=== PATIENT | female | born 1955 | race Caucasian/White ===

== ENCOUNTER 2016-05-05 06:16 | Inpatient (IN) | payer MEDICARE ==
[~2016-05-05] VITALS: Ht 162.6 cm; Wt 71.7 kg
--- NOTE | ~2016-05-05 | WRIGHTHP ---
[place], [place] PATIENT HISTORY AND PHYSICAL EXAM NAME: [facility] #: [id number] UNIT #: [id number] ROOM: 407 DOCTOR: GUY PADILLA MD BIRTHDATE: [birth year] DOS: 05/05/2016 HISTORY OF PRESENT ILLNESS: The patient presented to the Emergency Department with complaints of elevated blood pressures, precordial sharp stabbing chest pains lasting about an hour, and she says she was quite anxious. No nausea, no diaphoresis, no other GI or urinary symptoms. The patient was admitted to a monitored bed and following admission, she was seen by Cardiology who recommended a cardiac stress test. The patient says she already had her last cardiac stress test in November and she refused another stress test and would like to go home today. The patient is feeling much better and her blood pressure has improved, and she is not as anxious anymore. There are no complaints of any chest pain, no shortness of breath, no dizziness or fainting episodes. No other GI or urinary symptoms anymore, and she is feeling well. SYSTEMS REVIEW: LUNGS: No increasing shortness of breath or wheezing. GASTROINTESTINAL: No nausea, vomiting, diarrhea, or constipation. CARDIOVASCULAR SYSTEM: Complains of chest pains prior to coming to the hospital. SOCIAL HISTORY: The patient lives by herself. She has history of smoking cigarettes. Denies any alcohol or drug abuse. The patient still smokes few cigarettes a day. FAMILY HISTORY: Noncontributory. HOME MEDICATIONS: Imdur, memantine, Dulera breathing treatments, DuoNeb, levothyroxine, Zyprexa, Mirapex, hydrochlorothiazide, fluoxetine, Protonix, aspirin, hydroxyzine, pregabalin, which is Lyrica, hydrocodone. PHYSICAL EXAMINATION: VITAL SIGNS: Blood pressure 127/69, heart rate 67 beats per minute, breathing 20 times per minute, temperature 98 degrees Fahrenheit. GENERAL APPEARANCE: The patient is alert and oriented x 3, in no visible distress. HEENT AND NECK: Extraocular movements are intact. Sclerae are anicteric. Oral mucosa is moist and clean. No obvious facial weakness. Neck is supple without any lymphadenopathy. No thyromegaly. No JVD. No carotid arterial bruits. LUNGS: Clear to auscultation. No wheezing. No rhonchi. CARDIOVASCULAR SYSTEM: Heart rate is regular in rate and rhythm. S1 and S2 normally audible. No significant murmur or any other abnormal cardiac sounds. ABDOMEN: Soft, nontender. No obvious organomegaly. Bowel sounds are present. No obvious herniation. EXTREMITIES: Without significant cyanosis or edema. Warm to touch. CENTRAL NERVOUS SYSTEM: Alert and oriented x 3. Cranial nerves II-XII are intact. Speech is normal. The patient is able to move all extremities. Normal muscle strength. Deep tendon reflexes are equal on both sides. Plantars were downgoing. LABORATORY DATA: First set of cardiac enzyme was negative. Second set was [place], [place] PATIENT HISTORY AND PHYSICAL EXAM [facility] [id number] UNIT #: [id number] ROOM: [facility] DOCTOR: GUY PADILLA MD BIRTHDATE: [birth year] refused by the patient, and finally sent. BUN and creatinine 22 and 1.2. Hemoglobin 11.7. IMPRESSION: The patient with chest pains with negative first set of cardiac enzymes, having refused second set, but she did allow one more enzyme to be sent out. That cardiac enzyme was negative and she is refusing cardiac stress testing and is asymptomatic. The patient will be discharged to home today and seen in my office by me in 3 days. I will continue all of her home medications as they exist. Case discussed with the patient and nursing staff and Dr. Yoan Blanca, the mule driver today. GUY PADILLA MD CM:HISPHYS:PATIENT HISTORY AND PHYSICAL EXAMINATION 45 13 GUY PADILLA MD 05/05/161911 interface
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
[~2016-05-05 06:16] MED LIST: ADDERALL XR10 MG PO; ALBUTEROL2.5 MG/0.5 INH; ARTIFICIAL TEAR15 M1 OU; ATARAX25 MG; ATARAX25 MG PO; AUGMENTIN 875 M1 TAB PO; AZELASTINE137 MCG/A1 NS; Amitriptyline H10 MG PO; BACLOFEN10 MG PO; CALCIUM WITH D PO; CENTRUM SILVER1 EACH PO; CENTRUM SILVER1 TA2 PO; CIPRO500 MG PO; CLARITIN10 MG PO; CLINDAMYCIN HC300 MG PO; CLONAZEPAM1 M1 PO; CLONAZEPAM1 MG PO; COMBIVENT1 ARO; CRESTOR20 MG; CRESTOR20 MG PO; DIFLUCAN150 MG PO; DITROPAN XL10 MG PO; DOXYCYCLINE100 M3 PO; DULCOLAX10 MG R; ECOTRIN325 MG PO; EXELON9.5 MG/24 TD; FISH OIL 1,2001 EACH PO; FISH OIL PO; FLEXERIL10 MG PO; FLOXETINE PO; FLUOXETINE HCL20 MG PO; FLUOXETINE40 MG PO; FOLIC ACID0.8 MG PO; GABAPENTIN TAB600 MG PO; GABAPENTIN100 M1 PO; GABAPENTIN100 MG PO; HYDROCODONE BIT1 T11 PO; HYDROXYZINE HCL25 M1 PO; HYDROXYZINE PAM25 M1 PO; IMDUR; IMDUR SA30 MG PO; KLONOPIN1 MG PO; LASIX10 MG/M1; LASIX20 MG PO; LIPITOR40 MG PO; LISINOPRIL-HYDR1 TA1 PO; LISINOPRIL-HYDR1 TA3 PO; LISINOPRIL20 MG PO; LISINOPRIL5 MG PO; LYRICA25 M1 PO; Lovenox40 MG/0.4 SC; MACROBID100 M1 PO; MAGNESIUM; MIRAPEX PO; MIRAPEX0.5 MG PO; MIRAPEX1 MG PO; MOM30 M1 PO; MOTRIN600 MG PO; MOTRIN800 MG PO; MUCINEX600 MG PO; NAMENDA-28 PO; NEURONTIN600 MG PO; NEXIUM40 MG PO; NILSTAT,MY500000 UN/ PO; NITROTAB0.4 MG SL; NORCO 325 MG-51 TAB PO; NORCO 7.5-3251 EACH PO; NORFLEX100 MG PO; NORVASC2.5 MG PO; NUVIGIL250 MG PO; NUVIGIL50 MG PO; OMEPRAZOLE20 MG PO; OPANA ER10 MG; PHENERGAN25 M1; POTASSIUM PO; PROAIR HFA0.09 MG/AC INH; PROAIR HFA8.5 GM INH; PROTONIX40 MG PO; PROZAC40 M1 PO; PROZAC40 MG PO; PYRIDIUM100 MG PO; PYRIDIUM200 MG PO; Phenergan25 MG PO; ROBITUSSIN DM120 ML PO; SOLU-MEDROL40 MG IJ; SOLU-MEDROL40 MG IV; SPIRIVA18 MCG IH; SPIRIVA18 MCG PO; SYMBICORT1 AE1 INH; SYNTHROID PO; Synthroid,Levo50 MCG PO; TYLENOL650 M1 PO; ULTRAM50 MG PO; VANCOMYCIN HYD IV; VESICARE10 MG PO; VICODIN 500 MG-1 TAB PO; VISTARIL25 MG PO; VITAMIN B12 PO; VITAMIN B121000 MC1 PO; VITAMIN B122000 MCG PO; VITAMIN D32000 UNI1 PO; VITAMIN D50000 I1 PO; ZITHROMAX Z PA250 MG PO; ZOFRAN ODT4 MG SL; ZOFRAN4 MG PO; [UNRECOGNIZED DRUG - MIXTURE] OP
[2016-05-05 06:21] VITALS: BP 174/97
[2016-05-05 06:58] LABS: BASO % 0.3 % (0.0-1.0); EOS % 0.4 % (1.0-4.0); HEMATOCRIT 36.2 % (37.0-47.0); HEMOGLOBIN 11.7 g/dl (12.0-16.0); LYMPH # 2.2 10*3/uL (1.3-4.4); LYMPH % 27.4 % (27.0-41.0); MEAN CELL VOLUME 92.3 fl (81.0-99.0); MEAN CORPUSCULAR HGB 29.8 pg (27.0-31.0); MEAN CORPUSCULAR HGB CONC 32.3 g/dl (33.0-37.0); MEAN PLATELET VOLUME 9.7 fl (9.6-12.3); MONO # 0.6 10*3/uL (0.1-1.0); MONO % 7.6 % (3.0-9.0); NEUT # 5.1 10*3/uL (2.3-7.9); NEUT % 63.8 % (47.0-73.0); PLATELET COUNT AUTOMATED 174 10*3/uL (130-400); RED BLOOD COUNT 3.92 10*6/uL (4.10-5.10); WHITE BLOOD COUNT 7.9 10*3/uL (4.8-10.8)
[2016-05-05 07:07] LABS: INTERNATIONAL NORM RATIO 0.9 (2.0-3.5); PROTHROMBIN TIME 9.9 SECONDS (9.0-12.4)
[2016-05-05 07:22] LABS: ALBUMIN 3.1 gm/dl (3.1-4.5); ALKALINE PHOSPHATASE 66 U/L (45-117); BILIRUBIN, DIRECT < 0.1 mg/dL (0.0-0.2); BILIRUBIN, TOTAL 0.3 mg/dl (0.2-1.0); BUN 22 mg/dl (7-24); CARBON DIOXIDE 26 mmol/L (21-32); CHLORIDE 107 mmol/L (98-107); EST GLOM FILT AFRICAN AMERICAN 52 ml/min; GLUCOSE 78 mg/dL (65-99); MAGNESIUM 2.2 mg/dL (1.5-2.1); POTASSIUM 3.5 mmol/L (3.5-5.1); SGOT/AST 11 IU/L (3-35); SGPT/ALT 16 U/L (12-78); SODIUM 142 mmol/L (136-145); TOTAL PROTEIN 6.3 gm/dL (6.4-8.2)
[2016-05-05 07:23] LABS: TROPONIN I < 0.015 ng/ml (<0.5)
[2016-05-05 07:43] VITALS: BP 182/82
[2016-05-05 09:22] VITALS: BP 170/88
[2016-05-05] MEDS ORDERED: HYDROCHLOROTH12.5 M3 PO (09:41)
[2016-05-05] MEDS ORDERED: OLANZAPINE5 MG PO (09:46)
[2016-05-05] MEDS ORDERED: Fluoxetine20 MG/5 ML PO (09:51)
[2016-05-05] MEDS ORDERED: DELTASONE1 MG PO (09:53)
[2016-05-05 12:00] VITALS: BP 160/90
[2016-05-05 16:00] VITALS: BP 127/69
[2016-06-12] MEDS ORDERED: SEPTRA DS 800 M1 TAB PO (17:10)
[2016-06-13] MEDS ORDERED: PROZAC20 MG PO (17:06)
[2016-06-13] MEDS ORDERED: CRESTOR20 M1 PO (17:09)
[2016-06-16] MEDS ORDERED: CLEOCIN HCL300 MG PO (16:18)
[2016-06-16] MEDS ORDERED: MEDROL DOSEPAK4 MG PO (16:27)
== END 2016-05-05 19:15 | disposition home or self-care (01) | DRG 206 ==
LOC: ED 06:16 → EDHOLD 07:56 → 4E 08:15
PROVIDERS: Emergency Medicine
DX: M94.0 Chondrocostal junction syndrome [Tietze] (principal); Z99.81 Dependence on supplemental oxygen; I25.10 Atherosclerotic heart disease of native coronary artery without angina pectoris; I10 Essential (primary) hypertension; J44.9 Chronic obstructive pulmonary disease, unspecified; F41.9 Anxiety disorder, unspecified; G89.4 Chronic pain syndrome; F32.9 Major depressive disorder, single episode, unspecified; E03.9 Hypothyroidism, unspecified; F17.210 Nicotine dependence, cigarettes, uncomplicated; Z79.899 Other long term (current) drug therapy; Z79.82 Long term (current) use of aspirin; Z95.1 Presence of aortocoronary bypass graft; Z82.49 Family history of ischemic heart disease and other diseases of the circulatory system; Z88.1 Allergy status to other antibiotic agents; Z88.8 Allergy status to other drugs, medicaments and biological substances

== ENCOUNTER → 2016-07-25 | Outpatient (CLI) | payer OTHER ==
[~2016-07-25] MED LIST changes: +CLEOCIN HCL300 MG PO; +CRESTOR20 M1 PO; +DELTASONE1 MG PO; +Fluoxetine20 MG/5 ML PO; +HYDROCHLOROTH12.5 M3 PO; +MEDROL DOSEPAK4 MG PO; +OLANZAPINE5 MG PO; +PROZAC20 MG PO; +SEPTRA DS 800 M1 TAB PO
== END | disposition home or self-care (01) ==
LOC: US 19:00
DX: R60.0 Localized edema (principal)

== ENCOUNTER 2016-09-24 07:46 | Emergency (ER) | payer OTHER ==
[~2016-09-24] VITALS: Ht 162.5 cm; Wt 60.3 kg
[2016-09-24 08:19] LABS: BASO % 0.1 % (0.0-1.0); EOS % 0.2 % (1.0-4.0); HEMOGLOBIN 11.8 g/dl (12.0-16.0); LYMPH # 1.2 10*3/uL (1.3-4.4); LYMPH % 12.8 % (27.0-41.0); MEAN CELL VOLUME 90.7 fl (81.0-99.0); MEAN CORPUSCULAR HGB 28.9 pg (27.0-31.0); MEAN CORPUSCULAR HGB CONC 31.9 g/dl (33.0-37.0); MEAN PLATELET VOLUME 10.2 fl (9.6-12.3); MONO # 0.6 10*3/uL (0.1-1.0); MONO % 6.6 % (3.0-9.0); NEUT # 7.3 10*3/uL (2.3-7.9); NEUT % 80.1 % (47.0-73.0); PLATELET COUNT AUTOMATED 159 10*3/uL (130-400); RED BLOOD COUNT 4.08 10*6/uL (4.10-5.10); RED CELL DISTRI WIDTH 13.6 % (0-14.5); WHITE BLOOD COUNT 9.1 10*3/uL (4.8-10.8)
[2016-09-24 08:30] VITALS: BP 153/78
[2016-09-24 08:35] LABS: BUN 23 mg/dl (7-24); CARBON DIOXIDE 28 mmol/L (21-32); CHLORIDE 101 mmol/L (98-107); EST GLOM FILT AFRICAN AMERICAN 47 ml/min; GLUCOSE 97 mg/dL (65-99); POTASSIUM 3.9 mmol/L (3.5-5.1); SODIUM 138 mmol/L (136-145); TROPONIN I < 0.015 ng/ml (<0.045)
[2016-09-24] MEDS ORDERED: DELTASONE20 M1 PO (10:47)
== END 2016-09-24 11:01 | disposition home or self-care (01) ==
LOC: ED 07:46
PROVIDERS: Emergency Medicine
DX: S20.219A Contusion of unspecified front wall of thorax, initial encounter (principal); J44.1 Chronic obstructive pulmonary disease with (acute) exacerbation; F17.200 Nicotine dependence, unspecified, uncomplicated; Z95.1 Presence of aortocoronary bypass graft; I25.10 Atherosclerotic heart disease of native coronary artery without angina pectoris; N18.9 Chronic kidney disease, unspecified; Z99.81 Dependence on supplemental oxygen; Z79.82 Long term (current) use of aspirin; Z88.1 Allergy status to other antibiotic agents; Z88.6 Allergy status to analgesic agent; Z88.8 Allergy status to other drugs, medicaments and biological substances; Z91.018 Allergy to other foods; Z79.899 Other long term (current) drug therapy; W18.09XA Striking against other object with subsequent fall, initial encounter; Y93.89 Activity, other specified; Y92.9 Unspecified place or not applicable; Y99.9 Unspecified external cause status

== ENCOUNTER → 2016-09-27 | Outpatient (CLI) | payer OTHER ==
[~2016-09-27] MED LIST changes: +DELTASONE20 M1 PO
== END | disposition home or self-care (01) ==
LOC: RAD 18:12
DX: J98.4 Other disorders of lung (principal); Z87.81 Personal history of (healed) traumatic fracture

== ENCOUNTER → 2016-11-06 | Outpatient (CLI) | payer OTHER | END | disposition home or self-care (01) | LOC: LAB 16:24 | DX: Z11.2 Encounter for screening for other bacterial diseases (principal) ==

== ENCOUNTER 2016-11-19 16:16 | Emergency (ER) | payer OTHER ==
[~2016-11-19] VITALS: Wt 63.5 kg
[2016-11-19 16:18] VITALS: BP 166/80
[2016-11-19 16:18] LABS: BASO % 0.2 % (0.0-1.0); EOS % 0.2 % (1.0-4.0); HEMATOCRIT 38.6 % (37.0-47.0); HEMOGLOBIN 12.3 g/dl (12.0-16.0); LYMPH # 1.4 10*3/uL (1.3-4.4); LYMPH % 21.2 % (27.0-41.0); MEAN CORPUSCULAR HGB 28.7 pg (27.0-31.0); MEAN CORPUSCULAR HGB CONC 31.9 g/dl (33.0-37.0); MEAN PLATELET VOLUME 10.3 fl (9.6-12.3); MONO # 0.4 10*3/uL (0.1-1.0); MONO % 6.2 % (3.0-9.0); NEUT # 4.7 10*3/uL (2.3-7.9); NEUT % 71.9 % (47.0-73.0); PLATELET COUNT AUTOMATED 198 10*3/uL (130-400); RED BLOOD COUNT 4.29 10*6/uL (4.10-5.10); RED CELL DISTRI WIDTH 13.9 % (0-14.5); WHITE BLOOD COUNT 6.5 10*3/uL (4.8-10.8)
[2016-11-19 16:32] LABS: PROTHROMBIN TIME 10.4 SECONDS (9.0-12.4)
[2016-11-19 16:36] LABS: ALBUMIN 3.3 gm/dl (3.1-4.5); BILIRUBIN, TOTAL 0.2 mg/dl (0.2-1.0); POTASSIUM 3.3 mmol/L (3.5-5.1); TOTAL PROTEIN 7.3 gm/dL (6.4-8.2)
== END 2016-11-19 20:06 | disposition home or self-care (01) ==
LOC: EDSTATUS 16:16 → ED 16:17
PROVIDERS: Specialist
DX: S41.111A Laceration without foreign body of right upper arm, initial encounter (principal); J44.9 Chronic obstructive pulmonary disease, unspecified; I25.10 Atherosclerotic heart disease of native coronary artery without angina pectoris; F17.200 Nicotine dependence, unspecified, uncomplicated; Z88.1 Allergy status to other antibiotic agents; Z88.6 Allergy status to analgesic agent; Z88.8 Allergy status to other drugs, medicaments and biological substances; Z79.82 Long term (current) use of aspirin; Z79.899 Other long term (current) drug therapy; W18.39XA Other fall on same level, initial encounter; Y93.89 Activity, other specified; Y92.89 Other specified places as the place of occurrence of the external cause; Y99.8 Other external cause status

== ENCOUNTER → 2017-01-21 | Outpatient (CLI) | payer OTHER | END | disposition home or self-care (01) | LOC: MRI 11:00 | DX: M47.897 Other spondylosis, lumbosacral region (principal); M48.07 Spinal stenosis, lumbosacral region; I67.82 Cerebral ischemia; I10 Essential (primary) hypertension ==

== ENCOUNTER 2017-02-04 05:44 | Emergency (ER) | payer OTHER ==
[~2017-02-04] VITALS: Ht 160 cm; Wt 63.5 kg
--- NOTE | ~2017-02-04 | EKG ---
[place], [place] ELECTROCARDIOGRAM REPORT [facility] [id number] UNIT #: [id number] ROOM: DOCTOR: ESTEFANY MIKE MD,PATRICA BIRTHDATE: [birth year] DOS: 02/04/2017 Electrocardiogram done 02/04/2017 at 6:39 a.m. Normal sinus rhythm were noted for this patient. Mild prolongation of the SD interval is noted consistent with first-degree heart block. PATRICA ALLISON MD CM:EKGRPT:ELECTROCARDIOGRAM REPORT 1220 1235 PATRICA MIKE MD
[2017-02-04 06:30] LABS: BILIRUBIN NEGATIVE (NEGATIVE); BLOOD TRACE-INTACT (NEGATIVE); CLARITY CLEAR (CLEAR); COLOR YELLOW (YELLOW); GLUCOSE NEGATIVE (NEGATIVE); KETONE NEGATIVE (NEGATIVE); LEUKO ESTERASE NEGATIVE (NEGATIVE); NITRITE NEGATIVE (NEGATIVE); PH 5.5 (5.0-9.0); UROBILINOGEN 0.2 E.U./dl (0.2-1.0)
[2017-02-04 06:37] LABS: RBC 0-2 rbc/hpf (0-2); WBC 0-2 wbc/hpf (0-5)
[2017-02-04 06:44] LABS: EOS % 0.8 % (1.0-4.0); HEMATOCRIT 36.2 % (37.0-47.0); HEMOGLOBIN 11.3 g/dl (12.0-16.0); LYMPH # 1.1 10*3/uL (1.3-4.4); LYMPH % 21.9 % (27.0-41.0); MEAN CELL VOLUME 91.2 fl (81.0-99.0); MEAN CORPUSCULAR HGB 28.5 pg (27.0-31.0); MEAN CORPUSCULAR HGB CONC 31.2 g/dl (33.0-37.0); MEAN PLATELET VOLUME 9.9 fl (9.6-12.3); MONO # 0.5 10*3/uL (0.1-1.0); MONO % 9.3 % (3.0-9.0); NEUT # 3.3 10*3/uL (2.3-7.9); NEUT % 67.8 % (47.0-73.0); PLATELET COUNT AUTOMATED 123 10*3/uL (130-400); RED BLOOD COUNT 3.97 10*6/uL (4.10-5.10); RED CELL DISTRI WIDTH 14.6 % (0-14.5); WHITE BLOOD COUNT 4.9 10*3/uL (4.8-10.8)
[2017-02-04 07:01] LABS: ALBUMIN 3.2 gm/dl (3.1-4.5); ALKALINE PHOSPHATASE 111 U/L (45-117); BUN 17 mg/dl (7-24); CHLORIDE 105 mmol/L (98-107); CREATININE 1.13 mg/dL (0.55-1.02); POTASSIUM 3.7 mmol/L (3.5-5.1); SGOT/AST 17 IU/L (3-35); SGPT/ALT 18 U/L (12-78); SODIUM 139 mmol/L (136-145); TOTAL PROTEIN 6.7 gm/dL (6.4-8.2); TROPONIN I < 0.015 ng/ml (<0.045)
[2017-02-04 07:29] VITALS: BP 148/60
[2017-02-04] MEDS ORDERED: LISINOPRIL5 MG PO (07:30)
== END 2017-02-04 08:24 | disposition home or self-care (01) ==
LOC: ED 05:44
PROVIDERS: Emergency Medicine Emergency Medical Services
DX: I12.9 Hypertensive chronic kidney disease with stage 1 through stage 4 chronic kidney disease, or unspecified chronic kidney disease (principal); N18.9 Chronic kidney disease, unspecified; J44.1 Chronic obstructive pulmonary disease with (acute) exacerbation; F32.9 Major depressive disorder, single episode, unspecified; F17.200 Nicotine dependence, unspecified, uncomplicated; Z88.8 Allergy status to other drugs, medicaments and biological substances; Z88.5 Allergy status to narcotic agent; Z79.82 Long term (current) use of aspirin; Z79.899 Other long term (current) drug therapy; Z95.1 Presence of aortocoronary bypass graft

== ENCOUNTER 2017-02-06 23:46 | Emergency (ER) | payer OTHER ==
[~2017-02-06] VITALS: Ht 170.1 cm; Wt 65.8 kg
[2017-02-07 00:14] LABS: ACT PARTIAL THROMBO TIME 24.2 SECONDS (20.8-31.5); INTERNATIONAL NORM RATIO 0.9 (2.0-3.5)
[2017-02-07 00:17] LABS: BASO % 0.2 % (0.0-1.0); EOS % 0.2 % (1.0-4.0); HEMATOCRIT 34.5 % (37.0-47.0); HEMOGLOBIN 10.9 g/dl (12.0-16.0); LYMPH # 1.2 10*3/uL (1.3-4.4); LYMPH % 19.9 % (27.0-41.0); MEAN CELL VOLUME 89.8 fl (81.0-99.0); MEAN CORPUSCULAR HGB 28.4 pg (27.0-31.0); MEAN CORPUSCULAR HGB CONC 31.6 g/dl (33.0-37.0); MEAN PLATELET VOLUME 10.5 fl (9.6-12.3); MONO # 0.4 10*3/uL (0.1-1.0); MONO % 6.7 % (3.0-9.0); NEUT # 4.3 10*3/uL (2.3-7.9); NEUT % 72.3 % (47.0-73.0); PLATELET COUNT AUTOMATED 148 10*3/uL (130-400); RED BLOOD COUNT 3.84 10*6/uL (4.10-5.10)
[2017-02-07 00:20] LABS: ALBUMIN 3.1 gm/dl (3.1-4.5); ALKALINE PHOSPHATASE 104 U/L (45-117); BUN 29 mg/dl (7-24); CHLORIDE 106 mmol/L (98-107); CREATININE 1.82 mg/dL (0.55-1.02); POTASSIUM 3.7 mmol/L (3.5-5.1); SGOT/AST 20 IU/L (3-35); SGPT/ALT 17 U/L (12-78); SODIUM 140 mmol/L (136-145); TOTAL PROTEIN 6.4 gm/dL (6.4-8.2)
[2017-02-07 00:22] LABS: TROPONIN I < 0.015 ng/ml (<0.045)
[2017-02-07 02:51] VITALS: BP 104/48
== END 2017-02-07 03:14 | disposition short-term general hospital (02) ==
LOC: ED 23:46
PROVIDERS: Emergency Medicine
DX: I20.0 Unstable angina (principal); I12.9 Hypertensive chronic kidney disease with stage 1 through stage 4 chronic kidney disease, or unspecified chronic kidney disease; N18.9 Chronic kidney disease, unspecified; R94.31 Abnormal electrocardiogram [ECG] [EKG]; I25.10 Atherosclerotic heart disease of native coronary artery without angina pectoris; J44.9 Chronic obstructive pulmonary disease, unspecified; Z88.1 Allergy status to other antibiotic agents; Z88.8 Allergy status to other drugs, medicaments and biological substances; Z88.6 Allergy status to analgesic agent; Z91.02 Food additives allergy status; Z79.4 Long term (current) use of insulin; Z79.899 Other long term (current) drug therapy

== ENCOUNTER → 2017-02-22 | Day surgery (SDC) | payer OTHER ==
[~2017-02-22] VITALS: Ht 157.4 cm; Wt 65.8 kg
--- NOTE | ~2017-02-22 | O ---
[place], [place] OPERATIVE NOTE [id number] UN[facility] #: [id number] ROOM: [facility] BIR[facility]: [birth year] DOS: PROCEDURES: 1. Esophagogastroduodenoscopy and biopsy. 2. Colonoscopy and polypectomy. INDICATIONS: GERD and change in bowel habits. An informed consent was obtained from the patient after indication of procedures, alternatives and potential complications were explained to her. PROCEDURE MEDICATIONS: Sedation was administered by Anesthesiology Department. Scope used for upper endoscopy was Olympus gastroscope, GIF-180, depth of insertion was to the descending duodenum and for the colonoscopy the scope used was Olympus diagnostic pediatric colonoscope, variable stiffness, GIF-180, depth of insertion was to the cecum, which was identified by the usual landmarks, appendiceal orifice, ileocecal valve and triangular fold, in addition to transillumination in the right lower quadrant. FINDINGS: After adequate sedation, the patient was placed in left lateral decubitus position. Upper endoscopy was performed first. The scope was introduced under direct visualization through the upper esophageal sphincter into the esophagus. Esophageal mucosa appeared normal. No ulcerations or stricture. The lower esophageal sphincter was identified at 36 cm from incisors. Stomach was then intubated. Gastric mucosa inspected. Severe gastritis was seen. No discrete ulcers or active bleeding. A FRANCIE test was performed from the gastric antrum and body. On retroflexed views in the fundus, a grade 1 sliding hiatal hernia was identified. Pylorus was intubated easily. The duodenal bulb showed patchy erythema consistent with duodenitis and the descending duodenum was within normal range. The scope was then withdrawn after the stomach was decompressed. We then proceeded with a colonoscopy. Rectal examination showed diminished sphincter tone and no external hemorrhoids. Scope was introduced into the rectum, then advanced to the cecum with no difficulty. The prep was adequate. An 8 mm polyp was identified in the descending colon. The polyp was removed with a cold mini snare and recovered. The remaining colon mucosa showed moderate left-sided diverticular disease and no other abnormalities. Retroflexed views of the rectum showed grade 1 internal hemorrhoids. The scope was then withdrawn after the rectum was decompressed. The patient tolerated the procedure well. IMPRESSION: 1. Small hiatal hernia. 2. Gastritis and duodenitis, CLOtest performed. 3. Diminutive descending colon polyp, removed. 4. Moderate left-sided diverticular disease. 5. Internal hemorrhoids. PLAN: We will review the FRANCIE test and histopathology reports and treat the patient accordingly. Office followup will be scheduled in 2-3 weeks. [place], [place] OPERATIVE NOTE NAME: TONI TOSCANO UNIT #: [id number] ROOM: DOCTOR: OTILIA HUYNH MD BIRTHDATE: [birth year] OTILIA HUYNH MD CM:OPRECORD:OPERATIVE NOTE 1012 1044 GUY HUYNH MD 02/22/17 1045 interface
[2017-02-22 09:04] VITALS: BP 148/67
[2017-02-22 10:10] VITALS: BP 119/59
[2017-02-22 10:25] VITALS: BP 106/38
[2017-02-22 10:40] VITALS: BP 93/34
[2017-02-22 10:48] VITALS: BP 145/75
== END | disposition home or self-care (01) ==
LOC: SDC 02-19 08:45
DX: D12.5 Benign neoplasm of sigmoid colon (principal); K29.90 Gastroduodenitis, unspecified, without bleeding; K44.9 Diaphragmatic hernia without obstruction or gangrene; K63.5 Polyp of colon; K57.30 Diverticulosis of large intestine without perforation or abscess without bleeding; K64.0 First degree hemorrhoids; K21.9 Gastro-esophageal reflux disease without esophagitis; I10 Essential (primary) hypertension; J44.9 Chronic obstructive pulmonary disease, unspecified; F32.9 Major depressive disorder, single episode, unspecified; F41.9 Anxiety disorder, unspecified; I25.10 Atherosclerotic heart disease of native coronary artery without angina pectoris; J43.9 Emphysema, unspecified; G89.29 Other chronic pain; F17.210 Nicotine dependence, cigarettes, uncomplicated; Z80.9 Family history of malignant neoplasm, unspecified; Z82.49 Family history of ischemic heart disease and other diseases of the circulatory system; Z88.8 Allergy status to other drugs, medicaments and biological substances

== ENCOUNTER 2017-03-29 13:54 | Inpatient (IN) | payer OTHER ==
[~2017-03-29] VITALS: Ht 162.5 cm; Wt 68.9 kg
--- NOTE | ~2017-03-29 | EKG ---
[place], [place] ELECTROCARDIOGRAM REPORT NAME: TONI TOSCANO UNIT #: [id number] ROOM: [facility] DOCTOR: JULIAN FLYNN,YAMEL BIRTHDATE: [birth year] DOS: 03/29/2017 TIME: 1523 hours. IMPRESSION: 1. Sinus rhythm. 2. Borderline left atrial enlargement. 3. Nonspecific ST-T changes, especially V1 and V2. YAMEL JORDAN MD CM:EKGRPT:ELECTROCARDIOGRAM REPORT 1023 1043 YAMEL JORDAN MD
--- NOTE | ~2017-03-29 | WRIGHTHP ---
[place], [place] PATIENT HISTORY AND PHYSICAL EXAM NAME: TONI TOSCANO [facility] #: [id number] UNIT #: [id number] ROOM: 415 DOCTOR: GUY PADILLA MD BIRTHDATE: [birth year] DOS: 03/29/2017 HISTORY OF PRESENT ILLNESS: The patient is a 61-year-old female with a past medical history of: 1. COPD. 2. Nicotine smoke dependence. 3. Chronic kidney disease stage 3B. 4. Benign essential hypertension. 5. Adult failure to thrive. 6. Mixed hyperlipidemia. 7. Major depression. 8. Coronary artery disease of [place] vessels with coronary artery bypass grafts in June 2008. 10. History of partial hysterectomy. The patient presented to [facility] Emergency Department with complaints of finding herself on the floor and waking up with some bruises and pain in the left ribs this time. The patient was recommended for admission and cardiac monitoring, which was performed for 24 hours and patient has not had any issues with loss of consciousness and no significant cardiac dysrhythmias. The patient already has an appointment to see a neurologist as an outpatient. No seizures have been observed. No chest pain. No increasing shortness of breath. No GI or urinary symptoms. REVIEW OF SYSTEMS: LUNGS: No increasing shortness of breath or wheezing. GASTROINTESTINAL: No nausea, vomiting, diarrhea or constipation. CARDIOVASCULAR: No chest pains or palpitations. FAMILY HISTORY: Noncontributory. MEDICATIONS: Sennosides, Imdur, fluoxetine, aspirin, levothyroxine, Protonix, Lipitor, Zyprexa, memantine, hydroxyzine, Dulera, pregabalin. ALLERGIES: CEPHALOSPORINS, QUINOLONES, OXYCODONE, ASPARTAME, HYDROMORPHONE, RIVASTIGMINE, AVELOX, LEXAPRO. PHYSICAL EXAMINATION: GENERAL: Alert and oriented x 3, in no visible distress. HEENT AND NECK: Extraocular movements are intact. Sclerae are anicteric. Oral mucosa is moist and clean. No obvious facial weakness. Neck is supple without any lymphadenopathy. No thyromegaly. No JVD. No carotid arterial bruits. LUNGS: Clear to auscultation. No wheezing. No rhonchi. CARDIOVASCULAR SYSTEM: Heart rate is regular in rate and rhythm. S1 and S2 normally audible. No significant murmur or any other abnormal cardiac sounds. ABDOMEN: Soft, nontender. No obvious organomegaly. Bowel sounds are present. No obvious herniation. EXTREMITIES: Without significant cyanosis or edema. Warm to touch. CENTRAL NERVOUS SYSTEM: Alert and oriented x 3. Cranial nerves II-XII are [place], [place] PATIENT HISTORY AND PHYSICAL EXAM [facility] [id number] UNIT #: [id number] ROOM: [facility] DOCTOR: GUY PADILLA MD BIRTHDATE: [birth year] intact. Speech is normal. The patient is able to move all extremities. Normal muscle strength. Deep tendon reflexes are equal on both sides. Plantars were downgoing. LABORATORY DATA: Hemoglobin of 10.5, otherwise normal CBC, platelets at 124,000, slightly reduced. Normal serum electrolytes, bilirubin, liver enzymes. Left rib x-ray is without fracture. IMPRESSION: 1. The patient with episodes of loss of consciousness from uncertain etiology. The patient already has an appointment to see a neurologist and we have no neurologist available on staff at [facility]. The patient had no episode of loss of consciousness during this admission and no significant cardiac dysrhythmias were observed on the equipment monitor phototypesetting. Since the patient is asymptomatic, she will be discharged to home to follow up with me on Saturday and I will try to get an earlier appointment to see a neurologist for further evaluation. 2. Centrilobular emphysema with continued nicotine smoke dependence. The patient being encouraged to stop smoking cigarettes and kept on bronchodilators. 3. Coronary artery disease of [place] vessels, without chest pains. 4. Benign essential hypertension, with controlled blood pressures. 5. Chronic kidney disease stage 3B. GUY PADILLA MD CM:HISPHYS:PATIENT HISTORY AND PHYSICAL EXAMINATION 29 37 GUY PADILLA MD 03/30/171937 interface
--- NOTE | ~2017-03-29 | CON ---
[place], [place] REPORT OF CONSULTATION NAME: TONI TOSCANO [facility] #: [id number] UNIT #: [id number] ROOM: 415 DOCTOR: YAMEL JORDAN MD BIRTHDATE: [birth year] DOS: 03/30/2017 REASON FOR CONSULTATION: Cardiac evaluation due to history of coronary artery disease and hypertension. HISTORY OF PRESENT ILLNESS: The patient is a 61-year-old patient with history of coronary artery disease, bypass surgery, hypertension, came with "history of recurrent falls for the past few years." The patient is rather vague in her description of symptoms and also changing from subject to subject. Apparently, she was seen by her parts technician a few weeks ago and was told that her heart was doing okay and they referred her to see a specialist for questionable Parkinson's disease. She denies any chest pain, shortness of breath or palpitations. Had complaints of recurrent falls and "loss of consciousness" and also some unusual movement of her extremities, but denies any PND or orthopnea. No edema. No nausea, vomiting, diarrhea. REVIEW OF SYSTEMS: Review of the 8 systems negative except as mentioned above. PAST MEDICAL HISTORY: 1. Hypertension, CAD. 2. Dyslipidemia. 3. Depression. 4. Anxiety. 5. Chronic obstructive pulmonary disease. 6. Home oxygen. PAST SURGICAL HISTORY: 1. History of bypass surgery. 2. History of hysterectomy. HOME MEDICATIONS: Reviewed. ALLERGIES: Reviewed including oxycodone, opioids, Exelon, cephalosporins. SOCIAL HISTORY: The patient does smoke. FAMILY HISTORY: Noncontributory. PHYSICAL EXAMINATION: VITAL SIGNS: Blood pressure 107/80, pulse 64, respirations 18, weight 68.9 kg. GENERAL: Alert, comfortable, in no acute distress. HEENT: Pupils are round and equal. No jaundice. NECK: Supple, no distended veins. No carotid bruit. CHEST: Symmetrical, nontender. LUNGS: Clear to auscultation bilaterally. HEART: Regular rhythm, no S3, grade 1/6 systolic murmur. ABDOMEN: Benign, nontender. Bowel sounds normal. EXTREMITIES: Showed no edema. Distal pulses are palpable. SKIN: Warm and dry. No cyanosis, no clubbing. NEUROLOGIC: The patient is alert, oriented. No focal neurologic deficits. [place], [place] REPORT OF CONSULTATION NAME: [facility] [id number] UNIT #: [id number] ROOM: 415 DOCTOR: JULIAN FLYNN,YAMEL BIRTHDATE: [birth year] RECTAL: Deferred. GENITOURINARY: Deferred. REVIEW OF THE DIAGNOSTIC TESTS: EKG shows sinus rhythm with no acute ischemic changes. Labs reviewed including hemoglobin 10.2, platelets 123. Rhythm strip shows sinus rhythm with occasional sinus bradycardia. IMPRESSION: 1. Recurrent falls, etiology unknown. She will need further evaluation with a stress test, especially Neurology. 2. Coronary artery disease, status post bypass in the past. 3. Hypertension, currently stable. 4. Anemia. 5. Sinus bradycardia, asymptomatic. 6. Peripheral vascular disease. 7. Home oxygen. 8. Tobacco smoking. RECOMMENDATIONS: 1. The patient is stable from a cardiac standpoint. 2. Continue her aspirin, Imdur, and statin. She was not on beta blockers due to her sinus bradycardia. 3. The patient is strongly counseled to quit smoking. 4. She would like to follow with [facility] in the future. 5. She can be discharged from the cardiac point and I would recommend to decrease aspirin to 81 mg daily. 6. She says she has all the cardiac testing done recently with her parts technician and her last test in 2012 reviewed. Thank you, Dr. Heard, for asking us to evaluate this patient and we will follow the case along with you. YAMEL JORDAN MD CM:CONSTR:REPORT OF CONSULTATION 1544 03/30/17 2208 interface
[2017-03-29 14:12] VITALS: BP 186/74
[2017-03-29 15:34] LABS: BASO % 0.2 % (0.0-1.0); EOS # 0.1 10*3/uL (0.0-0.4); HEMATOCRIT 34.2 % (37.0-47.0); HEMOGLOBIN 10.5 g/dl (12.0-16.0); LYMPH # 0.9 10*3/uL (1.3-4.4); LYMPH % 15.1 % (27.0-41.0); MEAN CELL VOLUME 92.4 fl (81.0-99.0); MEAN CORPUSCULAR HGB 28.4 pg (27.0-31.0); MEAN CORPUSCULAR HGB CONC 30.7 g/dl (33.0-37.0); MEAN PLATELET VOLUME 10.6 fl (9.6-12.3); MONO # 0.6 10*3/uL (0.1-1.0); MONO % 9.1 % (3.0-9.0); NEUT # 4.6 10*3/uL (2.3-7.9); NEUT % 74.4 % (47.0-73.0); PLATELET COUNT AUTOMATED 124 10*3/uL (130-400); WHITE BLOOD COUNT 6.2 10*3/uL (4.8-10.8)
[2017-03-29 15:52] LABS: ALBUMIN 3.4 gm/dl (3.1-4.5); ALKALINE PHOSPHATASE 100 U/L (45-117); BUN 15 mg/dl (7-24); CHLORIDE 106 mmol/L (98-107); CREATININE 1.02 mg/dL (0.55-1.02); POTASSIUM 3.8 mmol/L (3.5-5.1); SGOT/AST 22 IU/L (3-35); SGPT/ALT 23 U/L (12-78); SODIUM 141 mmol/L (136-145); TOTAL PROTEIN 6.7 gm/dL (6.4-8.2)
[2017-03-29 16:55] VITALS: BP 178/80
[2017-03-29 18:09] VITALS: BP 157/69
[2017-03-29] MEDS ORDERED: SENNA8.6 MG PO (19:54)
[2017-03-29 20:00] VITALS: BP 144/71; BP 144/78
[2017-03-30] VITALS: BP 170/71
[2017-03-30 06:07] LABS: EOS # 0.1 10*3/uL (0.0-0.4); EOS % 1.5 % (1.0-4.0); HEMATOCRIT 33.6 % (37.0-47.0); HEMOGLOBIN 10.2 g/dl (12.0-16.0); LYMPH # 1.1 10*3/uL (1.3-4.4); LYMPH % 24.8 % (27.0-41.0); MEAN CELL VOLUME 93.3 fl (81.0-99.0); MEAN CORPUSCULAR HGB 28.3 pg (27.0-31.0); MEAN CORPUSCULAR HGB CONC 30.4 g/dl (33.0-37.0); MEAN PLATELET VOLUME 11.4 fl (9.6-12.3); MONO # 0.5 10*3/uL (0.1-1.0); MONO % 10.7 % (3.0-9.0); NEUT # 2.9 10*3/uL (2.3-7.9); NEUT % 62.8 % (47.0-73.0); PLATELET COUNT AUTOMATED 123 10*3/uL (130-400); WHITE BLOOD COUNT 4.6 10*3/uL (4.8-10.8)
[2017-03-30 06:08] LABS: BUN 13 mg/dl (7-24); CHLORIDE 106 mmol/L (98-107); CREATININE 1.06 mg/dL (0.55-1.02); POTASSIUM 3.7 mmol/L (3.5-5.1); SODIUM 140 mmol/L (136-145)
[2017-03-30 08:00] VITALS: BP 138/65
[2017-03-30 12:00] VITALS: BP 107/80
[2017-03-30 16:00] VITALS: BP 128/57
== END 2017-03-30 18:43 | disposition home or self-care (01) | DRG 605 ==
LOC: ED 13:54 → EDHOLD 18:46 → 4E 18:55
PROVIDERS: Emergency Medicine; Internal Medicine
DX: S30.0XXA Contusion of lower back and pelvis, initial encounter (principal); Z99.81 Dependence on supplemental oxygen; N18.3 Chronic kidney disease, stage 3 (moderate); J43.2 Centrilobular emphysema; E78.2 Mixed hyperlipidemia; D64.9 Anemia, unspecified; R55 Syncope and collapse; I12.9 Hypertensive chronic kidney disease with stage 1 through stage 4 chronic kidney disease, or unspecified chronic kidney disease; F32.9 Major depressive disorder, single episode, unspecified; I25.10 Atherosclerotic heart disease of native coronary artery without angina pectoris; F17.210 Nicotine dependence, cigarettes, uncomplicated; G89.29 Other chronic pain; K25.7 Chronic gastric ulcer without hemorrhage or perforation; W19.XXXA Unspecified fall, initial encounter; F41.9 Anxiety disorder, unspecified; R00.1 Bradycardia, unspecified; Z95.1 Presence of aortocoronary bypass graft; Z90.710 Acquired absence of both cervix and uterus; Z79.82 Long term (current) use of aspirin; Z79.899 Other long term (current) drug therapy; Z88.1 Allergy status to other antibiotic agents; Z88.8 Allergy status to other drugs, medicaments and biological substances; Z87.01 Personal history of pneumonia (recurrent); Z80.1 Family history of malignant neoplasm of trachea, bronchus and lung; Z84.89 Family history of other specified conditions; Z82.49 Family history of ischemic heart disease and other diseases of the circulatory system; Y93.89 Activity, other specified; Y92.89 Other specified places as the place of occurrence of the external cause; Y99.8 Other external cause status; Z71.6 Tobacco abuse counseling; R29.6 Repeated falls

== ENCOUNTER 2017-04-01 06:25 | Emergency (ER) | payer OTHER ==
[~2017-04-01] VITALS: Ht 157.4 cm; Wt 68.9 kg
[~2017-04-01 06:25] MED LIST changes: +SENNA8.6 MG PO
[2017-04-01 07:36] LABS: BASO % 0.1 % (0.0-1.0); EOS # 0.1 10*3/uL (0.0-0.4); EOS % 0.8 % (1.0-4.0); HEMOGLOBIN 10.8 g/dl (12.0-16.0); LYMPH # 0.8 10*3/uL (1.3-4.4); LYMPH % 10.3 % (27.0-41.0); MEAN CELL VOLUME 93.6 fl (81.0-99.0); MEAN CORPUSCULAR HGB 28.9 pg (27.0-31.0); MEAN CORPUSCULAR HGB CONC 30.9 g/dl (33.0-37.0); MEAN PLATELET VOLUME 10.8 fl (9.6-12.3); MONO # 0.6 10*3/uL (0.1-1.0); MONO % 7.3 % (3.0-9.0); NEUT # 6.4 10*3/uL (2.3-7.9); NEUT % 81.2 % (47.0-73.0); PLATELET COUNT AUTOMATED 122 10*3/uL (130-400); RED BLOOD COUNT 3.74 10*6/uL (4.10-5.10); RED CELL DISTRI WIDTH 14.9 % (0-14.5); WHITE BLOOD COUNT 7.9 10*3/uL (4.8-10.8)
[2017-04-01 07:48] LABS: BUN 12 mg/dl (7-24); CHLORIDE 104 mmol/L (98-107); CREATININE 1.08 mg/dL (0.55-1.02); POTASSIUM 3.9 mmol/L (3.5-5.1); SODIUM 139 mmol/L (136-145)
[2017-04-01] MEDS ORDERED: VIBRAMYCIN100 MG PO (08:27)
[2017-04-01 08:28] VITALS: BP 132/80
[2017-04-01] MEDS ORDERED: PREDNISONE20 M1 PO (08:29)
== END 2017-04-01 08:36 | disposition home or self-care (01) ==
LOC: ED 06:25
PROVIDERS: Emergency Medicine
DX: J44.1 Chronic obstructive pulmonary disease with (acute) exacerbation (principal); I12.9 Hypertensive chronic kidney disease with stage 1 through stage 4 chronic kidney disease, or unspecified chronic kidney disease; N18.9 Chronic kidney disease, unspecified; N17.0 Acute kidney failure with tubular necrosis; G89.29 Other chronic pain; I25.10 Atherosclerotic heart disease of native coronary artery without angina pectoris; K25.9 Gastric ulcer, unspecified as acute or chronic, without hemorrhage or perforation; F17.200 Nicotine dependence, unspecified, uncomplicated; F32.9 Major depressive disorder, single episode, unspecified; Z90.710 Acquired absence of both cervix and uterus; Z95.1 Presence of aortocoronary bypass graft; Z88.5 Allergy status to narcotic agent; Z88.8 Allergy status to other drugs, medicaments and biological substances; Z79.82 Long term (current) use of aspirin; Z79.899 Other long term (current) drug therapy

== ENCOUNTER 2017-04-02 20:02 | Inpatient (IN) | payer OTHER ==
[~2017-04-02] VITALS: Ht 157.5 cm; Wt 67.8 kg
--- NOTE | ~2017-04-02 | CON ---
[place], [place] REPORT OF CONSULTATION [id number] UN[facility] #: [id number] ROOM: 419 DOCTOR: YAMEL JORDAN MD BIRTHDATE: [birth year] DOS: 04/02/2017 REASON FOR CONSULTATION: Patient fell and coronary artery disease, skin. CLINICAL HISTORY: The patient is a 61-year-old female with history of coronary artery disease, hypertension, dyslipidemia, presented to the Emergency Room with "falls" and shortness of breath. She was admitted recently about a week ago and was discharged a couple of days ago from the hospital. She saw her slp teacher a few months ago and she would like to follow with [facility] due to close proximity to her living place. Again, she complains of some mild shortness of breath, chronic, which is mostly pulmonary related. Patient was on home oxygen about 4-5 liters a day and she is complaining of "recurrent falls" and also loss of consciousness which is unwitnessed, but she denies any chest pain, palpitations or dizziness. No PND, no orthopnea. No pedal edema. No fevers and chills. No cough or hemoptysis. No nausea, vomiting, diarrhea. No headaches. No tingling, numbness or weakness. No blurred vision. No musculoskeletal symptoms. REVIEW OF SYSTEMS: Review of the 8 systems negative except as mentioned above. PAST MEDICAL HISTORY: 1. Coronary artery disease, status post bypass around 2009, details unknown. 2. Hypertension. 3. History of sinus bradycardia. 4. Chronic kidney disease. 5. Peripheral vascular disease. 6. Home oxygen dependent. 7. Anxiety. PAST SURGICAL HISTORY: History of bypass surgery and hysterectomy. HOME MEDICATIONS: Reviewed. ALLERGIES: Reviewed including OXYCODONE, OPIOIDS, EXELON AND CEPHALOSPORINS. FAMILY HISTORY: Noncontributory. SOCIAL HISTORY: The patient does smoke, but does not use any illicit drugs or alcohol. PHYSICAL EXAMINATION: VITAL SIGNS: Blood pressure 170/72, pulse 63, respirations 18, weight 67.7 kilos, BMI 27. GENERAL: Alert, comfortable, in no acute distress. HEAD AND NECK: Neck supple, no distended neck veins, no carotid bruit. CHEST: Nontender. LUNGS: Few scattered rhonchi, but good air entry bilaterally. HEART: Regular rhythm, no S3, grade 1/6 systolic murmur. ABDOMEN: Benign, nontender. Bowel sounds normal. EXTREMITIES: Showed trace edema. Distal pulses are palpable. [place], [place] REPORT OF CONSULTATION NAME: TONI TOSCANO UNIT #: [id number] ROOM: [facility] DOCTOR: JULIAN FLYNN,YAMEL BIRTHDATE: [birth year] SKIN: Warm and dry. No cyanosis, no clubbing. NEUROLOGIC: Patient is alert, oriented. RECTAL: Deferred. GENITOURINARY: Deferred. REVIEW OF THE DIAGNOSTIC TESTS: EKG showed normal sinus rhythm. Her labs and imaging studies reviewed. Pertinent labs include creatinine 1.13, hemoglobin 11.1, platelets 134,000. IMPRESSION: 1. Recurrent falls with no true syncope. 2. History of coronary artery disease, status post bypass surgery around 2009. 3. Hypertension. 4. History of sinus bradycardia, stable. 5. Home oxygen. 6. Chronic kidney disease. 7. Peripheral vascular disease. RECOMMENDATIONS: She denies any chest pain or palpitations, so far there are no vance or tachy episodes on the monitor. She will need outpatient cardiac event monitor for evaluation of any vance or tachyarrhythmias. She is anticipating discharge to detention facility and she can be discharged home from the cardiac standpoint. Monitor heart rate and blood pressures and adjust medications as needed. YAMEL JORDAN MD CM:CONSTR:REPORT OF CONSULTATION 0104 04/04/17 0226 interface
--- NOTE | ~2017-04-02 | DS ---
[place], [place] DISCHARGE SUMMARY NAME: TONI TOSCANO [facility] #: [id number] UNIT #: [id number] ROOM: 419 DOCTOR: GUY PADILLA MD BIRTHDATE: [birth year] DOS: 04/05/2017 DISCHARGE DIAGNOSES: 1. Episodes of falls at home from uncertain etiology. 2. Nicotine smoke dependence. 3. Adult failure to thrive. 4. Centrilobular emphysema. 5. Acute exacerbation of chronic obstructive pulmonary disease. 6. Coronary artery disease of minto vessels, coronary artery bypass graft. 7. Chronic kidney disease stage 3B. 8. Benign essential hypertension. 9. Normocytic anemia. 10. Moderate protein-calorie malnutrition. 11. History of hysterectomy. HOSPITAL COURSE: The patient presented to the Emergency Department at [facility] with recurrent falls where the patient says she gets unconscious. The patient was recently kept in the hospital and monitored and no significant cardiac arrhythmias were observed. The patient also had no episodes of loss of consciousness during her stay at the hospital and no swelling, finally discharged home and then she came back with the same symptoms. The patient has no history of any seizures. CT of her thoracic spine showed a new compression fracture at T8 and chronic disk protrusion at L5-S1. White cell count of 4500, hemoglobin 11.2. The patient also seen by Cardiology again to consider patient's recurrent falls without any true syncope. 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 The patient already has an appointment to follow with Neurology as an outpatient. There is no inpatient neurologist available for consult. Advance disability and adult failure to thrive. I will get the patient to [facility] facility for rehab and close observation to see if she has any more falls or any episodes of loss of consciousness there. The patient says that she would like to go to [facility] for rehabilitation. The patient requesting that memantine to be stopped and instead she is interested in going back on Exelon. The patient says she has had no adverse reaction from Exelon except for the patch caused itching locally. Centrilobular emphysema and acute exacerbation of COPD with increased shortness of breath, which was treated and controlled. The patient is breathing better now. Coronary artery disease of the minto vessels, without chest pain. Chronic kidney disease stage 3B. Benign essential hypertension, with controlled blood pressures with treatment. Adult failure to thrive. The patient was kept on physical therapy. We also took bedsore precautions and fall precautions. The patient had no falls or [place], [place] DISCHARGE SUMMARY [facility] #[facility] [id number] UNIT #: [id number] ROOM: [facility] DOCTOR: GUY PADILLA MD BIRTHDATE: [birth year] episodes of loss of consciousness during this or the last admission. All her complaints of falls are at home and unobserved and also not seen during her last two admissions. Benign essential hypertension. Blood pressure is being monitored and treated and controlled. Coronary artery disease of minto vessels, without chest pains. Acute exacerbation of COPD during this admission, treated and improved. Arrangements are being made to discharge the patient to the [facility] facility tomorrow. LABORATORY DATA: CBC: White cell count of 4500, hemoglobin 11.2, normal platelets. Chest x-ray without any acute abnormality, just chronic bibasilar scarring and atelectasis. DISCHARGE MANAGEMENT: Rivastigmine 3 mg twice a day, sennoside 8.6 mg daily, pramipexole 1 mg b.i.d., Zyprexa 2.5 mg b.i.d., levothyroxine 50 mcg daily, Imdur 60 mg a day, folic acid 0.8 mg daily, fluoxetine 80 mg a day, aspirin 325 mg a day, hydroxyzine 25 mg t.i.d. p.r.n., Protonix 40 mg a day, Dulera 200 mcg 2 inhalations twice a day, Lyrica 25 mg b.i.d., Crestor 20 mg a day, Mirapex 0.5 mg b.i.d., levothyroxine 50 mcg daily, Imdur 30 mg a day, Vicodin 7.5/325 mg t.i.d. p.r.n. for pain. GUY PADILLA MD CM:DISCHARG [id number] GUY PADILLA MD 04/06/17 0413 interface
--- NOTE | ~2017-04-02 | WRIGHTHP ---
[place], [place] PATIENT HISTORY AND PHYSICAL EXAM NAME: TONI TOSCANO [facility] #: [id number] UNIT #: [id number] ROOM: 419 DOCTOR: GUY PADILLA MD BIRTHDATE: [birth year] DOS: 04/02/2017 HISTORY OF PRESENT ILLNESS: The patient is a 61-year-old female who presented to the Emergency Department with complaints of falls and shortness of breath. During the hospital this last admission, she had no falls and no shortness of breath, but when she went home, she came back and complained of these symptoms again. The patient was doing fine on a campus monitor prior to discharge. The patient apparently was unable to take care of herself and was readmitted to the hospital and at this time, she agreed to group home facility placement. The patient already had an appointment to see a neurologist as an outpatient. There are no observed seizures on the patient. There are no complaints of any chest pains, no GI or urinary symptoms otherwise. REVIEW OF SYSTEMS: LUNGS: Complains of shortness of breath. GASTROINTESTINAL: No nausea, vomiting, diarrhea or constipation. CARDIOVASCULAR: No chest pains or palpitations. SOCIAL HISTORY: Lives by herself at home, smokes cigarettes. Denies any alcohol or drug abuse. FAMILY HISTORY: Noncontributory. HOME MEDICATIONS: The patient is taking aspirin, folic acid, hydroxyzine, hydrocodone, Lyrica, albuterol, levothyroxine, Paxil, hydrochlorothiazide, Zyprexa, sennosides, DuoNeb, Imdur, fluoxetine, Crestor. PAST MEDICAL HISTORY: Coronary artery disease of the ute vessels, COPD, nicotine smoke dependence, hypertension, hypocalcemia, normocytic anemia, moderate protein-calorie malnutrition, coronary artery bypass graft, hysterectomy. PHYSICAL EXAMINATION: GENERAL APPEARANCE: Generalized weakness. VITAL SIGNS: Blood pressure 142/76, heart rate of 75 beats per minute, breathing is 16 times per minute. HEENT AND NECK: Extraocular movements are intact. Sclerae are anicteric. Oral mucosa is moist and clean. No obvious facial weakness. Neck is supple without any lymphadenopathy. No thyromegaly. No JVD. No carotid arterial bruits. LUNGS: Clear to auscultation. No wheezing. No rhonchi. CARDIOVASCULAR SYSTEM: Heart rate is regular in rate and rhythm. S1 and S2 normally audible. No significant murmur or any other abnormal cardiac sounds. ABDOMEN: Soft, nontender. No obvious organomegaly. Bowel sounds are present. No obvious herniation. EXTREMITIES: Without significant cyanosis or edema. Warm to touch. CENTRAL NERVOUS SYSTEM: Alert and oriented x 3. Cranial nerves II-XII are intact. Speech is normal. The patient is able to move all extremities. Normal muscle strength. Deep tendon reflexes are equal on both sides. Plantars were downgoing. LABORATORY DATA: Hemoglobin 11.2, white cell count of 4500, normal platelets. [place], [place] PATIENT HISTORY AND PHYSICAL EXAM NAME: [facility] [id number] UNIT #: [id number] ROOM: 419 DOCTOR: GUY PADILLA MD BIRTHDATE: [birth year] Chest x-ray without any acute abnormality. Chronic bibasilar scarring and atelectasis. Normal serum electrolytes. Hemoglobin 10.8. No leukocytosis. Physical examination done. IMPRESSION: 1. The patient with reported, but not observed episodes of loss of consciousness with normal cardiac monitoring during last admission and so far during this admission. The patient needs a neurological evaluation and I will try to get her another appointment with Neurology after she is placed to a group home facility and the patient may require EEG studies. No seizures have been observed during her hospital stay. Recent CT of the head and neck were normal. Cardiology consult has been obtained also. 2. Nicotine smoke dependence. The patient encouraged to stop smoking cigarettes. 3. Adult failure to thrive. We are getting group home placement and web content & social media manager on consult. 4. Centrilobular emphysema. The patient continues to smoke cigarettes. She is on bronchodilators. 5. Acute exacerbation of chronic obstructive pulmonary disease, increased shortness of breath to be treated as mentioned above. 6. Coronary artery disease of ute vessels without any chest pains. 7. Chronic kidney disease stage 3B. 8. Benign essential hypertension with controlled blood pressures with treatment. GUY PADILLA MD CM:HISPHYS:PATIENT HISTORY AND PHYSICAL EXAMINATION [id number] GUY PADILLA MD 04/03/17 1134 interface
--- NOTE | ~2017-04-02 | PR ---
[place], [place] PROGRESS NOTE [id number] UNIT #: [id number] ROOM: 419 DOCTOR: RAÚL MCCABE MD BIRTHDATE: [birth year] DOS: SUBJECTIVE: The patient is doing fine without any complaints. OBJECTIVE: VITAL SIGNS: Graphic trend shows blood pressure 184/90, pulse of 60, respirations 20, temperature 97.6. LUNGS: Clear. HEART: Regular. ABDOMEN: Obese, soft. EXTREMITIES: Without any edema. ASSESSMENT AND PLAN: She is sitting in her bed, enjoying a computer. The patient is relatively stable and is not having any problems. The plan is to discharge her today to [facility]. RAÚL MCCABE MD CM:PNTRANS [id number] RAÚL MCCABE MD 04/05/17 2156 interface
[~2017-04-02 20:02] MED LIST changes: +PREDNISONE20 M1 PO; +VIBRAMYCIN100 MG PO
[2017-04-02 20:03] VITALS: BP 174/71
[2017-04-02 21:55] VITALS: BP 153/76
[2017-04-03] VITALS: BP 171/76
[2017-04-03 07:00] LABS: HEMATOCRIT 35.7 % (37.0-47.0); HEMOGLOBIN 11.2 g/dl (12.0-16.0); LYMPH # 0.5 10*3/uL (1.3-4.4); LYMPH % 10.5 % (27.0-41.0); MEAN CELL VOLUME 93.7 fl (81.0-99.0); MEAN CORPUSCULAR HGB 29.4 pg (27.0-31.0); MEAN CORPUSCULAR HGB CONC 31.4 g/dl (33.0-37.0); MEAN PLATELET VOLUME 11.4 fl (9.6-12.3); MONO # 0.1 10*3/uL (0.1-1.0); MONO % 2.4 % (3.0-9.0); NEUT # 3.9 10*3/uL (2.3-7.9); NEUT % 86.7 % (47.0-73.0); PLATELET COUNT AUTOMATED 134 10*3/uL (130-400); RED BLOOD COUNT 3.81 10*6/uL (4.10-5.10); RED CELL DISTRI WIDTH 14.7 % (0-14.5); WHITE BLOOD COUNT 4.5 10*3/uL (4.8-10.8)
[2017-04-03 07:41] LABS: CREATININE 1.13 mg/dL (0.55-1.02); POTASSIUM 4.8 mmol/L (3.5-5.1)
[2017-04-03 08:00] VITALS: BP 170/72
[2017-04-03 12:00] VITALS: BP 100/81
[2017-04-03 16:00] VITALS: BP 110/47
[2017-04-03 20:00] VITALS: BP 111/57
[2017-04-04] VITALS: BP 100/54
[2017-04-04 08:00] VITALS: BP 151/70
[2017-04-04 12:00] VITALS: BP 120/62
[2017-04-04 16:00] VITALS: BP 148/78
[2017-04-04 20:00] VITALS: BP 142/75
[2017-04-05] VITALS: BP 155/71
[2017-04-05 08:00] VITALS: BP 184/90
[2017-04-05 12:00] VITALS: BP 122/76
== END 2017-04-05 14:14 | disposition other institution (70) | DRG 552 ==
LOC: ED 20:02 → EDHOLD 21:12 → 4E 21:12
PROVIDERS: Internal Medicine
DX: S22.069A Unspecified fracture of T7-T8 vertebra, initial encounter for closed fracture (principal); Z99.81 Dependence on supplemental oxygen; E44.0 Moderate protein-calorie malnutrition; N18.3 Chronic kidney disease, stage 3 (moderate); J44.1 Chronic obstructive pulmonary disease with (acute) exacerbation; I25.10 Atherosclerotic heart disease of native coronary artery without angina pectoris; R62.7 Adult failure to thrive; I12.9 Hypertensive chronic kidney disease with stage 1 through stage 4 chronic kidney disease, or unspecified chronic kidney disease; D64.9 Anemia, unspecified; Z66 Do not resuscitate; Z51.5 Encounter for palliative care; R29.6 Repeated falls; F41.9 Anxiety disorder, unspecified; I73.9 Peripheral vascular disease, unspecified; F17.210 Nicotine dependence, cigarettes, uncomplicated; E78.5 Hyperlipidemia, unspecified; M51.27 Other intervertebral disc displacement, lumbosacral region; Z91.81 History of falling; Z90.710 Acquired absence of both cervix and uterus; Z79.899 Other long term (current) drug therapy; Z95.1 Presence of aortocoronary bypass graft; Z79.82 Long term (current) use of aspirin; Z88.1 Allergy status to other antibiotic agents; Z88.5 Allergy status to narcotic agent; Z88.8 Allergy status to other drugs, medicaments and biological substances; Z68.27 Body mass index [BMI] 27.0-27.9, adult; W18.39XA Other fall on same level, initial encounter; Y93.89 Activity, other specified; Y92.89 Other specified places as the place of occurrence of the external cause; Y99.8 Other external cause status

== ENCOUNTER 2017-04-07 19:46 | Emergency (ER) | payer OTHER ==
[~2017-04-07] VITALS: Ht 157.4 cm; Wt 71.2 kg
[2017-04-07] MEDS ORDERED: NORCO 5-325 TA1 EACH PO (20:25)
[2017-04-07 20:38] VITALS: BP 169/82
== END 2017-04-07 20:42 | disposition home or self-care (01) ==
LOC: ED 19:46
DX: M54.6 Pain in thoracic spine (principal); F17.200 Nicotine dependence, unspecified, uncomplicated; Z88.5 Allergy status to narcotic agent; Z88.8 Allergy status to other drugs, medicaments and biological substances; Z79.82 Long term (current) use of aspirin; Z79.899 Other long term (current) drug therapy; Z90.710 Acquired absence of both cervix and uterus

== ENCOUNTER 2017-04-14 22:21 | Inpatient (IN) | payer OTHER ==
[~2017-04-14] VITALS: Ht 157.4 cm; Wt 64.9 kg
--- NOTE | ~2017-04-14 | PR ---
[place], [place] PROGRESS NOTE NAME: TONI TOSCANO UNIT #: [id number] ROOM: 412 DOCTOR: PATRICA FORD MD BIRTHDATE: [birth year] DOS: 04/17/2017 The patient was independently seen and examined with [id number] encounter today. History was personally confirmed. Physical examination was performed. All the labs available for the patient were reviewed. The assessment and management were discussed with Dr. Heard as well personally. The note done by the territory sales manager medical was approved. The assessment and management of the patient was done for the patient today was personally done with any changes in the medical management recommendations. The patient has been noted effective control of the pain with the use of the morphine. The symptomatic cough has continued with continue steroids, bronchodilator treatments. PHYSICAL EXAMINATION: VITAL SIGNS: Reviewed and noted as normal vital signs. The pulse oxygen saturation on 6 liters nasal cannula pulse ox saturation maintained, 96% saturation. LUNGS: Noted moderate decreased breath sounds, scattered expiratory wheezing without any crackles. ABDOMEN: Soft and nontender. LABORATORY DATA: Chest x-ray yesterday were noted with changes of COPD. Culture of sputum and phlegm noted normal raven. IMPRESSION: 1. Terminal chronic obstructive pulmonary disease with chronic severe hypoxic respiratory failure with history of hypercapnia as well. 2. The patient with chronic pain as well. PLAN OF MANAGEMENT: The patient was recommended for patient to discharge home with hospice care according to the patient's wishes, comfort measures and palliative care to be constituted. Overall prognosis for this patient is poor. [place], [place] PROGRESS NOTE NAME: TONI TOSCANO UNIT #: [id number] ROOM: [facility] DOCTOR: PATRICA FORD MD BIRTHDATE: [birth year] PATRICA ALLISON MD CM:PNTRANS [id number] PATRICA MIKE MD 04/17/17 0823 interface
--- NOTE | ~2017-04-14 | WRIGHTHP ---
[place], [place] PATIENT HISTORY AND PHYSICAL EXAM NAME: TONI TOSCANO [facility] #: [id number] UNIT #: [id number] ROOM: 412 DOCTOR: RAÚL MCCABE MD BIRTHDATE: [birth year] DOS: 04/14/2017 HISTORY OF PRESENT ILLNESS: The patient is 61 years old. The patient of Dr. Heard, who was admitted under the services yesterday with complaints of increasing shortness of breath. The patient has had multiple ER visits lately. She has come in with complaints of back pain. At this time, she mostly complained of shortness of breath. She was last admitted to the hospital last month with acute back pain and was discharged to [facility]. She just left the assisted yesterday, comes back into the hospital today with complaints of shortness of breath. Denies having any fever, any chills, any cough, chest pains or palpitations. She uses 5 liters of oxygen at home. By the time she arrived here yesterday, her saturation was 79%. PAST MEDICAL HISTORY: Significant for, 1. Continued nicotine abuse. 2. Panacinar emphysema with acute exacerbation and hospitalization in the past. 3. Coronary artery disease with history of CABG. 4. Benign hypertension. 5. Chronic back pain with a compression of fracture of the T8 that was seen during the last admission. MEDICATIONS: She is on ProAir HFA 2 q.i.d., albuterol p.r.n., Symbicort 160, Dulera, aspirin 325, omeprazole 40, fluoxetine 80, folic acid 0.8 mg, [place] 7.5, hydroxyzine 25 t.i.d., Isordil 60 daily, levothyroxine 50 mcg daily, Mirapex 2.5 twice daily, MiraLax 17 g daily, pramipexole 1 mg b.i.d., Benicar 25 b.i.d., rivastigmine 3 mg b.i.d. and lovastatin 20 daily,. SOCIAL HISTORY: She continues to smoke about a pack of cigarettes. PHYSICAL EXAMINATION: GENERAL: She is awake, alert and oriented. VITAL SIGNS: Blood pressure is 158/60, pulse of 77, respirations 18, temperature 97.8. LUNGS: Diminished breath sounds, scattered wheezes heard. HEART: Regular. ABDOMEN: Obese, soft, nontender. EXTREMITIES: Without any edema. ASSESSMENT AND PLAN: 1. Acute exacerbation of chronic obstructive pulmonary disease. The patient has been admitted. IV steroids and breathing treatments will be ordered. 2. Acute tracheobronchitis. Antibiotics is started. 3. Chronic back pain with recent compression fracture of T8. She should have a bone density as an outpatient. Consider vertebroplasty if the patient's pain continued to get worse. 4. Adult failure to thrive. The patient has requested hospice care as per case management. Consultation will be obtained. [place], [place] PATIENT HISTORY AND PHYSICAL EXAM NAME: TONI TOSCANO UNIT #: [id number] ROOM: 412 DOCTOR: RAÚL MCCABE MD BIRTHDATE: [birth year] RAÚL MCCABE MD CM:HISPHYS:PATIENT HISTORY AND PHYSICAL EXAMINATION [id number] RAÚL MCCABE MD 04/15/17 1456 interface
--- NOTE | ~2017-04-14 | DS ---
[place], [place] DISCHARGE SUMMARY NAME: TONI TOSCANO [facility] #: [id number] UNIT #: [id number] ROOM: 412 DOCTOR: GUY PADILLA MD BIRTHDATE: [birth year] DOS: DATE OF ADMISSION: 04/14/2017 DATE OF DISCHARGE: 04/17/2017 DISCHARGE DIAGNOSES: 1. The patient with advanced centrilobular emphysema with end-stage COPD and end-stage lung disease with oxygen dependence. 2. The patient going home with hospice. 3. Acute exacerbation of severe underlying chronic obstructive pulmonary disease with acute over chronic respiratory failure, improved with treatment. 4. History of nicotine smoke dependence. 5. Severe back pains secondary to chronic intervertebral disk disease. 6. Significant cough. 7. Mixed hyperlipidemia. 8. Coronary artery disease of kaw vessels. 9. Benign essential hypertension. 10. Coronary artery disease of the kaw vessels and coronary artery bypass graft. 11. Compression fracture at T8 with acute over chronic back pains. 12. Major depression, recurrent, moderate. 13. History of coronary artery disease with coronary artery bypass grafts in June of 2008. 14. History of partial hysterectomy. 15. Advance adult failure to thrive. 16. Chronic kidney disease stage 3A. HOSPITAL COURSE: 1. The patient presented to the Emergency Department this time with increased shortness of breath and severe back pains. The patient was found to have acute exacerbation of severe underlying chronic obstructive pulmonary disease with acute over chronic respiratory failure and she was treated with corticosteroids, oxygen, nebulizer treatments, antibiotics and her breathing has improved. House Admin, Dr. Sandy followed her during this admission and has cleared her for discharge to home. 2. The patient wants hospice consult for care at home and they have been consulted and the patient going home with hospice. 3. Severe back pains and she has history of T8 compression fracture. 4. The patient was treated with Vicodin initially and later on her pains subsided with use of IV morphine 2 mg. The patient is more comfortable now and is being sent home on oral morphine as needed to be taken as needed for back pains if the Vicodin does not work. 5. Chronic kidney disease stage 3A remained stable, serum electrolytes were checked. 6. Major depression, recurrent, moderate, and stable with treatment. The patient takes fluoxetine and Zyprexa. 7. History of coronary artery disease of kaw vessel and coronary artery bypass graft history. The patient remains on Imdur and remains chest pain free. 8. Mixed hyperlipidemia treated and controlled with Lipitor. [place], [place] DISCHARGE SUMMARY NAME: TONI TOSCANO [facility] #: [id number] UNIT #: [id number] ROOM: [facility] DOCTOR: GUY PADILLA MD BIRTHDATE: [birth year] 9. Gastroesophageal reflux disease and esophagitis, asymptomatic with Protonix. 10. Hypothyroidism, treated with levothyroxine. PAST MEDICAL HISTORY: Hypothyroidism. LABORATORY DATA: Sputum cultures grew normal raven. Chest x-ray without acute abnormality, just COPD. Blood cultures were negative. Hemoglobin A1c of 5.8, hemoglobin 10.2. No leukocytosis. DISCHARGE MANAGEMENT: Morphine 10 mg every hour as needed for pain control. Clonazepam 0.5 mg 3 times a day for myoclonic jerks, Lyrica 25 mg b.i.d., Vicodin t.i.d. p.r.n. as she was taking at home, DuoNeb every 4 hours as needed, fluoxetine 80 mg a day, Imdur 60 mg a day, hydroxyzine 25 mg every 8 hours, Zyprexa 2.5 mg b.i.d., pramipexole 1 mg b.i.d., rivastigmine 3 mg b.i.d., Atorvastatin 20 mg a day, Protonix 40 mg a day, levothyroxine 50 mcg daily, aspirin 325 mg daily, folic acid 0.8 mg a day, MiraLax 17 grams daily, Dulera twice a day. GUY PADILLA MD CM:ALEENA [id number] GUY PADILLA MD 04/17/17 1035 interface
--- NOTE | ~2017-04-14 | CON ---
[place], [place] REPORT OF CONSULTATION NAME: TONI TOSCANO [facility] #: [id number] UNIT #: [id number] ROOM: 412 DOCTOR: PATRICA FORD MD BIRTHDATE: [birth year] DOS: 04/15/2017 PULMONARY CONSULTATION, EVALUATION AND MANAGEMENT CONSULTATION REQUESTED BY: Dr. Heard. REASON FOR CONSULTATION: To assess the patient for current ongoing COPD exacerbation and other respiratory disease exacerbation. HISTORY OF PRESENT ILLNESS: This is a 61-year-old white female known to me with past history of chronic hypoxic respiratory failure as well as advanced COPD and others. She has been admitted to the hospital under the care of Dr. Heard on 04/14/2017. She has been brought to the hospital as the patient was reporting symptoms of shortness of breath, which has been noted to be worsened. The patient has been admitted to the hospital lately in [facility] and has been recently released from that. She has been brought to the hospital by the ambulance. The patient was noted with generalized weakness and fatigue as well with increased sleepiness and drowsiness as well reported. She does have some cough without any sputum expectoration. Denies symptoms of chest pain or hemoptysis. The patient has been admitted to the hospital for recurrent acute exacerbation of chronic obstructive pulmonary disease at the present time. REVIEW OF SYSTEMS: CONSTITUTIONAL SYMPTOMS: Fatigue and tiredness reported. Denies symptoms of fever or chills. EYES: Denies any burning, redness, or tenderness. EARS, NOSE, AND THROAT SYMPTOMS: Denies sore throat, hoarseness, otalgia, postnasal drainage, or epistaxis. CARDIOVASCULAR: Denies anginal pain, edema or pain of the lower extremity. GASTROINTESTINAL: Denies dysphagia, nausea, vomiting, diarrhea, abdominal pain, hematemesis, melena, or recent abnormal weight loss history. SKIN: Denies any itching, rashes, or lesions. MUSCULOSKELETAL: Chronic joint pain, which has been treated with the pain medications. CENTRAL NERVOUS SYSTEM: Denies dizziness, headache, diplopia, or syncopal episodes. Remaining systems were reviewed with the patient, they were noted all negative. PAST MEDICAL HISTORY: 1. Noted for recent hospitalization in this hospital under Dr. Heard for a couple of days from 04/02/2017 until 04/05/2017 for the management of recurrent falls for this patient, 2. Failure to thrive and others. The patient was treated at [facility] after 04/05/2017 until 04/14/2017. 3. Past history of advanced centrilobular emphysema/COPD. 4. History of recurrent fall, etiology unknown. 5. Hypercholesterolemia. 6. Chronic back pain, arthritis, and intervertebral disk disease. 7. History of coronary artery disease. [place], [place] REPORT OF CONSULTATION NAME: TONI TOSCANO UNIT #: [id number] ROOM: [facility] DOCTOR: ESTEFANY MIKE MD,[facility] BIRTHDATE: [birth year] 8. Essential hypertension. 9. Thyroid nodule history. 10. History of restless leg syndrome. 11. Idiopathic daytime hypersomnia. 12. Hypothyroidism. PAST SURGICAL HISTORY: 1. Coronary artery bypass grafting of the patient in 2008. 2. Partial hysterectomy. 3. Hiatal hernia repair. 4. Arthroplasty of the left shoulder. 5. Neuroma removal as well. 6. Left breast lumpectomy that was noted benign. 7. Past PICC line insertion. SOCIAL HISTORY: The patient is . She has one child, lives at home. Tobacco use was noted from the age of [age] years old for the patient, a pack of cigarettes per day with intermediate ____ tobacco use, currently smoking as per patient quarter pack of cigarettes daily. Denies history of alcohol use or illicit drug use. Denies any occupation related pulmonary exposure. FAMILY HISTORY: Father at age of 69 due to complication of myocardial infarction. Mother at 46 due to complication related to lung cancer. MEDICATIONS: The medications currently administered on admission: Use of Imdur, MiraLax, folic acid, aspirin, fluoxetine, levothyroxine, Protonix, atorvastatin, rivastigmine 3 mg p.o. b.i.d., pramipexole, olanzapine, hydroxyzine pamoate, Solu-Medrol 30 mg b.i.d., DuoNeb q.4h., Rocephin, Klonopin, and other p.r.n. medications. DRUG ALLERGIES: NOTED WITH MANY DRUG ALLERGIES THAT INCLUDE CEPHALOSPORINS, FLUOROQUINOLONES, OXYCODONE, ASPARTAME, DILAUDID, EXELON, MOXIFLOXACIN, AND LEXAPRO. SOME OF THE MEDICATION ALLERGIES REPORTED HAVE BEEN PRESCRIBED TO THE PATIENT WAS TAKEN BY THE PATIENT WITHOUT ANY SIDE EFFECTS. PHYSICAL EXAMINATION: GENERAL: This is a 61-year-old female who has been noted currently without any acute distress, has been noted with qrnnqejs-zj-kjyaqm nonproductive cough, chest congestion upon assessment. VITAL SIGNS: Height was recorded by the nursing staff as 5 feet 2 inches, weight of 143 pounds, BMI 26.2. Normal temperature, respiratory rate 16-28, heart rate of 90-92, blood pressure 150/60-173/80. Pulse oxygen saturation of the patient on 6 liters nasal cannula recorded between 88-91% saturation. HEENT: Shows head was atraumatic. Eyes nonicterus. NECK: Supple. CARDIOVASCULAR: S1, S2 audible. LUNGS: Noted diffuse reduction in breath sounds with expiratory wheezing. No crackles were heard. ABDOMEN: Soft, nontender and flat. EXTREMITIES: The patient was noted without any edema, clubbing, or cyanosis. [place], [place] REPORT OF CONSULTATION NAME: TONI TOSCANO UNIT #: [id number] ROOM: [facility] DOCTOR: ESTEFANY MIKE MD,PATRICA BIRTHDATE: [birth year] CENTRAL NERVOUS SYSTEM: Cranial nerves 2-12 intact. Noted intact without any focal deficit. SKIN: No lesions or rashes. MUSCULOSKELETAL: Does not show any gross deformities. LABORATORY DATA: BMP of the patient done on 03/09/2017 were noted with creatinine 1.14 at that time with normal BUN. BMP on 04/14/2017 on this admission, creatinine elevated to 1.26. BUN was noted as normal. Remaining electrolytes were normal. CBC of the patient was noted with normal WBC count, hemoglobin 10.2, hematocrit was normal, platelet count was normal. IMAGING STUDIES: One-view chest x-ray, rotated film towards the right side was noted as well. There was no clearcut infiltration or other abnormality noted with simple one-view malpositioned chest x-ray. IMPRESSION: 1. The patient will be currently admitted to the hospital with recurrence of acute exacerbation of chronic obstructive pulmonary disease with a history of hypercapnia, which has been known previously as well at times. 2. The patient with possibly acute bronchitis. There was no evidence of acute pneumonia; however, it cannot be excluded unless until rather PA lateral chest x-ray is completed on this patient that would be ordered. PLAN OF MANAGEMENT: Order the sputum for Gram stain and culture. Order a PA lateral well positioned chest x-ray in the morning to exclude any pneumonia. In the meantime, continue bronchodilators and oxygen supplementation. Supportive therapy, plan of management. Arterial blood gases will be ordered for the patient to assess the ventilatory status as well. Usual care. Additional treatment changes will continue to be made for this patient based on the progression of her illness. PATRICA ALLISON MD CM:CONSTR:REPORT OF CONSULTATION 1250 04/15/17 2727 interface
--- NOTE | ~2017-04-14 | PR ---
[place], [place] PROGRESS NOTE [id number] UNIT #: [id number] ROOM: 412 DOCTOR: GUY PADILLA MD BIRTHDATE: [birth year] DOS: 04/16/2017 SUBJECTIVE: Patient with chronic shortness of breath, cough and significant complaints of back pains, wants to go home with hospice consult now. PHYSICAL EXAMINATION: VITAL SIGNS: Blood pressure is 113/50, heart rate 87 beats per minute, breathing 18 times per minute, temperature 98.2 degrees Fahrenheit. GENERAL APPEARANCE: The patient is alert and oriented x 3, in no visible distress. Generalized weakness. HEENT AND NECK: Exam within normal limits. CARDIOVASCULAR SYSTEM: Heart rate is regular in rate and rhythm. S1 and S2 normally audible. LUNGS: Clear to auscultation. ABDOMEN: Soft, nontender. No obvious organomegaly. Bowel sounds are present. EXTREMITIES: Without significant cyanosis or edema. IMPRESSION: 1. Patient with chronic back pains and compression fractures, continues to complain of pain despite of increasing her Vicodin dose. I will further increase her Vicodin to every 6 hours. Patient says she is unable to tolerate fentanyl patch. 2. Advanced centrilobular emphysema and acute exacerbation of chronic obstructive pulmonary disease, being treated with oxygen and bronchodilators. 3. Mixed hyperlipidemia, followed, treated and controlled. 4. History of coronary artery disease of [place] vessels without chest pain. 5. Benign essential hypertension, treated and controlled. GUY PADILLA MD CM:PNTRANS [phone] GUY PADILLA MD 04/17/17 0038 interface
--- NOTE | ~2017-04-14 | EKG ---
[place], [place] ELECTROCARDIOGRAM REPORT NAME: TONI TOSCANO UNIT #: [id number] ROOM: 412 DOCTOR: ESTEFANY MIKE MD,PATRICA BIRTHDATE: [birth year] DOS: 04/14/2017 At 10:37 p.m. Normal sinus rhythm noted with heart rate 82 beats per minute, inversion of the T waves was noted in V2, V3, V4. Prolonged QT interval was also noted. PATRICA ALLISON MD CM:EKGRPT:ELECTROCARDIOGRAM REPORT [phone] PATRICA MIKE MD
--- NOTE | ~2017-04-14 | PR ---
[place], [place] PROGRESS NOTE NAME: TONI TOSCANO [facility] #: [id number] UNIT #: [id number] ROOM: 412 DOCTOR: ESTEFANY MIKE MD,PATRICA BIRTHDATE: [birth year] DOS: 04/16/2017 SUBJECTIVE: The patient has been noted with coughing, which has been noted intermittently, not expectorating any sputum. Complaining of pain in the back. Continuing with the multiple pain medications including narcotic medication at quite high doses. OBJECTIVE: VITAL SIGNS: For the patient normal temperature, respiratory rate 18, heart rate 86, blood pressure 170/46. The pulse oxygen saturation of the patient on 6 liters nasal cannula at 90%-95% saturation. HEENT: No acute change. NECK: Supple. CARDIOVASCULAR: S1, S2 audible. LUNGS: The patient was noted without any crackles. Moderate expiratory wheezing was present, increased from yesterday's examination. ABDOMEN: Soft, flat, and nontender. EXTREMITIES: The patient without any acute edema. MUSCULOSKELETAL: No obvious deformities. SKIN: No lesions or rashes. CENTRAL NERVOUS SYSTEM: Noted intact. LABORATORY DATA: The chest x-ray of the patient that was done this morning for the patient was reviewed for the patient does show evidence of severe hyperinflation, changes of emphysema, COPD, post-coronary bypass grafting without any evidence of acute pulmonary infiltration. Sputum Gram stain of the patient was pending, which was done today. Blood culture from the 7th of this month showed no bacterial growth. Arterial blood gas that was done yesterday showed pH of 7.39, pCO2 45, pO2 of 64.6. IMPRESSION: 1. The patient is currently admitted to the hospital with acute severe exacerbation of chronic obstructive pulmonary disease with acute hypoxic respiratory failure as well as chronic hypercarbia. 2. Change in mental status secondary to the above. There was no evidence of acute pneumonia, acute bronchitis was suggested. 3. History of nicotine dependence. 4. Pain Secondary to chronic intervertebral disk disease. 5. Severe nonproductive cough was also noted. PLAN OF MANAGEMENT: The patient will be started on Robitussin-AC for this patient at this time with the management of severe cough. Continue the pain medical management for the patient as already been done by the primary care attending. Monitor results of the sputum. Other supportive therapy, plan of management and care. Hospice consultation will be according to the patient's wishes. Additional treatment changes need to be made for the patient based on the progression of the illness. Usual care. [place], [place] PROGRESS NOTE NAME: TONI TOSCANO UNIT #: [id number] ROOM: [facility] DOCTOR: PATRICA FORD MD BIRTHDATE: [birth year] PATRICA ALLISON MD CM:PNTRANS [phone] PATRICA MIKE MD 04/17/17217 interface
--- NOTE | ~2017-04-14 | PR ---
[place], [place] PROGRESS NOTE NAME: TONI TOSCANO [facility] #: [id number] UNIT #: [id number] ROOM: 412 DOCTOR: TONO GUTIERREZ DO BIRTHDATE: [birth year] DOS: 04/17/2017 SUBJECTIVE: The patient was seen and examined at bedside. The patient was sitting upright, feeling improved. She continues to have a chronic cough, but it is nonproductive. The patient reports that the morphine that was given to her yesterday improved her shortness of breath. The patient requested that we discuss at length the severity of her pulmonary illness. Dr. Heard was at bedside along with Dr. Allison and myself and we discussed at length that the patient's lung disease is end-stage; however, due to the effectiveness of the morphine, we will be to discharge her home with an oral dose of morphine that can help with her air hunger; however, we did explain to her that there is little that we can do medically to improve or regain any of her lung function due to the chronic severity of her illness. OBJECTIVE: VITAL SIGNS: Temperature is 97.7, pulse is 69, respirations 18, blood pressure 123/66, pulse ox is 93% on 6 liters nasal cannula. HEENT: No change. NECK: Supple, no masses appreciated. CARDIOVASCULAR: S1 and S2 audible. HEART: Regular rate and rhythm, no murmurs, gallops or rubs. LUNGS: Improved; however, moderate wheezing was noted; however, no crackles were appreciated in either of the lung bases. ABDOMEN: Soft and nontender. EXTREMITIES: No erythema, no cyanosis, and no clubbing. MUSCULOSKELETAL: No change. SKIN: No rashes. NEUROLOGICAL: Cranial nerves are intact. IMPRESSION: 1. Severe exacerbation of chronic obstructive pulmonary disease with acute hypoxic and hypercarbic failure. 2. Altered mental status, which has improved, likely secondary to the infection and the respiratory failure. 3. Nicotine dependence. 4. Chronic pain. 5. Nonproductive cough which has improved. TREATMENT PLAN: The patient has been cleared by respiratory team to be discharged today. Oral morphine will be provided by the primary team to diminish her air hunger. No change to her home medications at this time other than as noted above. The patient is okay to follow up with Dr. Allison outpatient upon discharge. TONO GUTIERREZ DO [place], [place] PROGRESS NOTE NAME: DORCASTONI Kaleigh [facility] [id number] UNIT #: [id number] ROOM: [facility] DOCTOR: TONO GUTIERREZ DO BIRTHDATE: [birth year] PATRICA ALLISON MD CM:PNAMOS [phone] TONO GUTIERREZ DO 04/18/17 0227 interface
[2017-04-14 22:21] VITALS: BP 148/72
[~2017-04-14 22:21] MED LIST changes: +NORCO 5-325 TA1 EACH PO; -NORCO 7.5-3251 EACH PO
[2017-04-14 22:56] LABS: BASO % 0.1 % (0.0-1.0); HEMATOCRIT 32.3 % (37.0-47.0); HEMOGLOBIN 10.2 g/dl (12.0-16.0); LYMPH # 0.6 10*3/uL (1.3-4.4); LYMPH % 8.9 % (27.0-41.0); MEAN CORPUSCULAR HGB 28.7 pg (27.0-31.0); MEAN CORPUSCULAR HGB CONC 31.6 g/dl (33.0-37.0); MEAN PLATELET VOLUME 10.2 fl (9.6-12.3); MONO # 0.7 10*3/uL (0.1-1.0); MONO % 10.2 % (3.0-9.0); NEUT # 5.7 10*3/uL (2.3-7.9); NEUT % 80.4 % (47.0-73.0); PLATELET COUNT AUTOMATED 188 10*3/uL (130-400); RED BLOOD COUNT 3.55 10*6/uL (4.10-5.10); RED CELL DISTRI WIDTH 14.5 % (0-14.5); WHITE BLOOD COUNT 7.1 10*3/uL (4.8-10.8)
[2017-04-14 23:06] VITALS: BP 133/66
[2017-04-14 23:16] LABS: ALBUMIN 3.1 gm/dl (3.1-4.5); ALKALINE PHOSPHATASE 124 U/L (45-117); BUN 14 mg/dl (7-24); CHLORIDE 99 mmol/L (98-107); CREATININE 1.26 mg/dL (0.55-1.02); LIPASE 62 U/L (73-393); POTASSIUM 3.5 mmol/L (3.5-5.1); SGOT/AST 76 IU/L (3-35); SGPT/ALT 42 U/L (12-78); SODIUM 137 mmol/L (136-145); TOTAL PROTEIN 6.9 gm/dL (6.4-8.2)
[2017-04-14 23:17] LABS: TROPONIN I < 0.015 ng/ml (<0.045)
[2017-04-14 23:43] VITALS: BP 141/67
[2017-04-15 00:15] VITALS: BP 176/80
[2017-04-15] MEDS ORDERED: MIRALAX POWDER255 G1 PO (00:58)
[2017-04-15] MEDS ORDERED: DULER200 INH (00:59)
[2017-04-15] MEDS ORDERED: RIVASTIGMINE TAR3 M1 PO (01:00)
[2017-04-15 08:00] VITALS: BP 158/60
[2017-04-15] MEDS ORDERED: SPIRIVA -- 3018 MCG INH (10:59)
[2017-04-15 12:00] VITALS: BP 136/61
[2017-04-15 13:24] LABS: ABG BASE EXCESS 2.6 mmol/L (-2.0-2.0); ABG HCO3 27.5 mmol/l (22-26); ABG O2 SATURATION 91.8 % (95-97); ARTERIAL BLOOD GAS PCO2 45.2 mmHg (35-45); ARTERIAL BLOOD GAS PH 7.398 (7.35-7.45); ARTERIAL BLOOD GAS PO2 64.6 mmHg (80-90)
[2017-04-15 16:00] VITALS: BP 116/51
[2017-04-15 20:00] VITALS: BP 103/52
[2017-04-16] VITALS: BP 107/46
[2017-04-16 16:00] VITALS: BP 113/50
[2017-04-16 20:00] VITALS: BP 136/61
[2017-04-17] VITALS: BP 107/61
[2017-04-17 08:00] VITALS: BP 123/66
[2017-04-17] MEDS ORDERED: MORPHINE S100 MG/5 M PO (12:02)
== END 2017-04-17 13:42 | disposition hospice, home (50) | DRG 189 ==
LOC: ED 22:21 → EDHOLD 23:36 → 4E 23:36
PROVIDERS: Emergency Medicine Emergency Medical Services; Internal Medicine Critical Care Medicine
DX: J96.21 Acute and chronic respiratory failure with hypoxia (principal); F33.9 Major depressive disorder, recurrent, unspecified; N18.3 Chronic kidney disease, stage 3 (moderate); Z99.81 Dependence on supplemental oxygen; J44.0 Chronic obstructive pulmonary disease with (acute) lower respiratory infection; J44.1 Chronic obstructive pulmonary disease with (acute) exacerbation; J20.9 Acute bronchitis, unspecified; R62.7 Adult failure to thrive; I25.10 Atherosclerotic heart disease of native coronary artery without angina pectoris; G89.29 Other chronic pain; M54.9 Dorsalgia, unspecified; F17.210 Nicotine dependence, cigarettes, uncomplicated; I12.9 Hypertensive chronic kidney disease with stage 1 through stage 4 chronic kidney disease, or unspecified chronic kidney disease; M48.9 Spondylopathy, unspecified; E78.2 Mixed hyperlipidemia; K21.0 Gastro-esophageal reflux disease with esophagitis; J96.22 Acute and chronic respiratory failure with hypercapnia; E03.9 Hypothyroidism, unspecified; E78.00 Pure hypercholesterolemia, unspecified; G25.81 Restless legs syndrome; Z96.612 Presence of left artificial shoulder joint; Z80.1 Family history of malignant neoplasm of trachea, bronchus and lung; Z90.710 Acquired absence of both cervix and uterus; Z79.899 Other long term (current) drug therapy; Z88.1 Allergy status to other antibiotic agents; Z95.1 Presence of aortocoronary bypass graft; Z88.8 Allergy status to other drugs, medicaments and biological substances; Z87.311 Personal history of (healed) other pathological fracture; Z82.49 Family history of ischemic heart disease and other diseases of the circulatory system; Z84.89 Family history of other specified conditions; Z88.6 Allergy status to analgesic agent

== ENCOUNTER 2017-06-10 18:06 | Inpatient (IN) | payer OTHER ==
[~2017-06-10] VITALS: Ht 157.5 cm; Wt 53.6 kg
--- NOTE | ~2017-06-10 | PR ---
[place], [place] PROGRESS NOTE [id number] UNIT #: [id number] ROOM: 415 DOCTOR: GUY PADILLA MD BIRTHDATE: [birth year] DOS: 06/24/2017 ADDENDUM The patient finally agreed to be discharged to home with hospice for end of life care. The patient was treated for bilateral pneumonia with MRSA and Klebsiella and case was discussed with Dr. Sandy who has asked me to give her 5 more days of Bactrim-DS. For severe back pain and T8 compression fracture, the pains are better controlled with fentanyl patch, which is being continued and she can get morphine as needed. Benign essential hypertension, with controlled blood pressures with treatment. Nicotine smoke dependence. The patient has been encouraged to stop smoking cigarettes. Moderate protein calorie malnutrition and poor prognosis. Adult failure to thrive. Coronary artery disease of the [place] vessels, without chest pains. Generalized anxiety disorder. The patient continued on Ativan as needed. GUY PADILLA MD CM:PNTRANS [phone] GUY PADILLA MD 06/24/17 1827 interface
--- NOTE | ~2017-06-10 | PR ---
[place], [place] PROGRESS NOTE [facility]: [id number] UNIT #: [id number] ROOM: 415 DOCTOR: ESTEFANY MIKE MD,PATRICA BIRTHDATE: [birth year] DOS: 06/20/2017 PULMONARY PROGRESS NOTE SUBJECTIVE: She has been noted comfortable at this time. Continue getting intravenous antibiotic for the patient being prepared for discharge to the nursing facility. She denies symptoms of chest pain, using the BiPAP as ordered. There was no cough. OBJECTIVE: VITAL SIGNS: Normal temperature, respiratory rate 20, heart rate 74, blood pressure 131/72. Pulse oxygen saturation on 6 liters nasal cannula 96% saturation. HEENT: No acute change. NECK: Supple. CARDIOVASCULAR: S1, S2 audible. LUNGS: The patient was noted without any wheezing or crackles. ABDOMEN: Soft, nontender. EXTREMITIES: Without any acute edema. IMPRESSION: The patient who has been currently noted with gradual improvement in the respiratory status. The patient is improving slowly and progressively. Resolving acute pneumonia, acute on chronic hypercapnic hypoxic respiratory failure. PLAN OF TREATMENT: No changes in the therapy for this patient from the pulmonary standpoint, discharge the patient to the nursing facility whenever needed. PATRICA ALLISON MD CM:PNTRANS [phone] PATRICA MIKE MD 06/20/172002 interface
--- NOTE | ~2017-06-10 | PR ---
[place], [place] PROGRESS NOTE [facility] [id number] UNIT #: [id number] ROOM: 415 DOCTOR: ESTEFANY MIKE MDPATRICA BIRTHDATE: [birth year] DOS: 06/14/2017 SUBJECTIVE: The patient was noted comfortable at this time without any acute distress at the present time. She has been still noted the coughing with sputum expectoration, also noted with the pain, which has been noted in the spine, and other parts of the body, on pain medications. Her appetite noted fair. Mentally the patient has been noted awake. Shortness of breath has been noted, but improving since admission. Denies symptoms of hemoptysis or any chest pain, which is new. Denies edema or pain in the lower extremity, dysphagia, constipation, or diarrhea. Remaining systems were reviewed. They were noted all negative. OBJECTIVE: VITAL SIGNS: Blood pressure was noted as 170/80-132/68. The temperature normal, respiratory rate 18-20. Height 76-84. Pulse oxygen saturation recorded on high flow nasal cannula is 98% saturation. HEENT: Showed no new change. NECK: Supple. CARDIOVASCULAR: S1, S2 audible without any added sounds. LUNGS: Moderate bilateral expiratory wheezing were noted with decreased breaths in lower portion of the lungs. ABDOMEN: Soft, nontender, and flat. EXTREMITIES: Without any acute edema. MUSCULOSKELETAL: Without any acute deformities. SKIN: No lesions or rashes. LABORATORY DATA: No labs were done today. The culture of the sputum, which was done on this admission was noted light growth of gram-positive cocci and MRSA. IMPRESSION: 1. The patient with bilateral acute pneumonia with MRSA, lower portion of the lung, possibility of aspiration could be considered. 2. The patient with acute and chronic respiratory failure as well with chronic hypercarbia. 3. The patient with a history of nicotine use previously. 4. The patient with terminal COPD history. 5. Acute multiple psychiatric problem with chronic pain. PLAN OF TREATMENT: Discontinuation of the IV dose and the Zithromax. Start the patient on the IV vancomycin. Ordered the routine lab as well. Other therapy, plan of management as previously ordered will be continued. Usual care, other supportive plan of therapy and care. Additional treatment changes will be done based on progression of illness. The patient has been currently assessed for possible exacerbation and admission in the [facility] facility. BiPAP to be used as previously. The steroids and the bronchodilators medication will be continued as previously unchanged. [place], [place] PROGRESS NOTE NAME: TONI TOSCANO UNIT #: [id number] ROOM: [facility] DOCTOR: PATRICA FORD MD BIRTHDATE: [birth year] PATRICA ALLISON MD CM:PNTRANS [phone] PATRICA MIKE MD 06/15/17 0047 interface
--- NOTE | ~2017-06-10 | PR ---
[place], [place] PROGRESS NOTE NAME[id number] UNIT #: [id number] ROOM: 415 DOCTOR: GUY PADILLA MD BIRTHDATE: [birth year] DOS: 06/22/2017 SUBJECTIVE: The patient first agreed and then refused to go with community hospice. Now, she is agreeing again, so her discharge planning remains quite uncertain. VITAL SIGNS: Blood pressure 115/50, breathing 18 times per minute, heart rate of 80 beats per minute, afebrile. The patient is still requiring 6 liters of oxygen per minute by nasal cannula to maintain a pulse ox of around 90%. IMPRESSION: 1. The patient bilateral pneumonia with methicillin-resistant Staphylococcus aureus and Klebsiella, receiving doxycycline and vancomycin with slow improvement. The patient's repeat chest x-ray shows mild bibasilar opacities compatible with possible pneumonia. 2. Acute over chronic hypercapnic and hypoxemic respiratory failure, being treated with bronchodilators, oxygen and her long-term prognosis remains poor. 3. Hypothyroidism, replaced with supplements. 4. Moderate protein calorie malnutrition. The patient being encouraged to eat. Dietary are following. 5. Severe mid back pains with T8 compression fracture, being treated with fentanyl patch now, and pains much better control. 6. Coronary artery disease of the [place] vessels without chest pains. 7. Advance adult failure to thrive, generalized weakness. The patient working with physical therapy. 8. Benign essential hypertension, controlled blood pressures with treatment. GUY PADILLA MD CM:PNTRANS [phone] GUY PADILLA MD 06/22/17 2352 interface
--- NOTE | ~2017-06-10 | PR ---
[place], [place] PROGRESS NOTE NAME: TONI TOSCANO UNIT #: [id number] ROOM: 415 DOCTOR: PATRICA FORD MD BIRTHDATE: [birth year] DOS: 06/23/2017 SUBJECTIVE: She has been comfortably, resting in the bed at this time. Denies symptoms of chest pain, coughing, or any sputum expectoration. Oxygen supplementation, continue high-flow nasal cannula. She has been using the BiPAP as well. OBJECTIVE: VITAL SIGNS: For the patient, which was recorded. The patient showed the temperature noted as normal. The respiratory rate recorded as 18, heart rate 75, blood pressure 124/60. The pulse oxygen saturation noted as 96% on 6 liters nasal cannula. HEENT: Examination shows head was atraumatic. Eyes, nonicterus. NECK: Supple. CARDIOVASCULAR: S1, S2 was audible. LUNGS: Noted without any wheezing or crackles at the present time. Breaths are noted moderately decreased. ABDOMEN: Soft, flat, nontender. EXTREMITIES: Without any edema, clubbing, cyanosis. VISIBLE SKIN: No lesions or rashes. LABORATORY DATA: Chest x-ray that was done this morning, was reviewed shows continued improvement in the pneumonia in the lower lung was noted. The vancomycin trough level is elevated as 23.4. IMPRESSION: 1. Resolving acute pneumonia with gram-negative and gram-positive infection, progressively with current medical management. 2. Resolving acute on chronic hypercapnic and hypoxic respiratory failure. 3. Improved mental status changes secondary to hypercarbia. PLAN OF TREATMENT: No changes in the plan of management. At this time, vancomycin remains on hold because of elevation of the mild trough level. The patient will be continued other previous treatment therapy, plan of management and care. Additional treatment changes to be made based on the progression of the illness. She could be considered for home discharge, if desired with hospice services. [place], [place] PROGRESS NOTE NAME: TONI TOSCANO UNIT #: [id number] ROOM: 415 DOCTOR: PATRICA FORD MD BIRTHDATE: [birth year] PATRICA ALLISON MD CM:PNTRANS [phone] PATRICA MIKE MD 06/24/17 0439 interface
--- NOTE | ~2017-06-10 | PR ---
[place], [place] PROGRESS NOTE NAME: [facility] [id number] UNIT #: [id number] ROOM: 415 DOCTOR: GUY PADILLA MD BIRTHDATE: [birth year] DOS: 06/23/2017 SUBJECTIVE: The patient continues to do better. She still requires 6 liters of oxygen, which she has required chronically for some time now. OBJECTIVE: VITAL SIGNS: Blood pressure 120/50, heart rate 73 beats per minute, breathing 20 times per minute, temperature 98 degrees Fahrenheit. GENERAL APPEARANCE: The patient is alert and oriented x 3, in no visible distress, except for generalized weakness. HEENT AND NECK: Exam within normal limits. CARDIOVASCULAR SYSTEM: Heart rate is regular in rate and rhythm. S1 and S2 normally audible. LUNGS: Clear to auscultation. ABDOMEN: Soft, nontender. No obvious organomegaly. Bowel sounds are present. EXTREMITIES: Without significant cyanosis or edema. IMPRESSION AND PLAN: 1. The patient with bilateral lower lung pneumonia with methicillin-resistant Staphylococcus aureus and Klebsiella, was treated with doxycycline and vancomycin and Dr. Sandy, her lung doctor has given clearance for her to be discharged to home with 5 more days of Bactrim-DS. 2. Acute over chronic hypercapnic and hypoxemic respiratory failure, improved with treatment. Long-term prognosis remains poor. 3. Hypothyroidism, replaced with supplements. 4. Moderate protein calorie malnutrition, adult failure to thrive. The patient os working with Dietary. 5. Severe mid back pains with history of T8 compression fractures, resolved with fentanyl patch. 6. Coronary artery disease of the [place] vessels, without chest pain. 7. Benign essential hypertension, treated and controlled. 8. Plan is to send the patient home with hospice tomorrow. She is agreeable. GUY PADILLA MD CM:PNTRANS [phone] GUY PADILLA MD 06/23/172 interface
--- NOTE | ~2017-06-10 | PR ---
[place], [place] PROGRESS NOTE [id number] UNIT #: [id number] ROOM: 415 DOCTOR: ESTEFANY MIKE MD,PATRICA BIRTHDATE: [birth year] DOS: 06/21/2017 PULMONARY PROGRESS NOTE SUBJECTIVE: The patient noted comfortable at this time without any acute distress. The patient is sitting on the bed. The patient is using oxygen supplementation, use the BiPAP previously as ordered. OBJECTIVE: VITAL SIGNS: For the patient shows the temperature remains normal, respiratory rate 18-20, heart rate 79 and 73, blood pressure 126/64-142/61. Pulse oxygen saturation of the patient noted on 6 liters nasal cannula 92% saturation. HEENT: Examination shows head was atraumatic. Eyes nonicterus. NECK: Supple. CARDIOVASCULAR: S1, S2 was audible. LUNGS: The patient was noted without any wheeze or crackles. ABDOMEN: Soft, nontender. IMPRESSION: 1. Resolving acute pneumonia, improving. 2. Acute on chronic hypercapnic hypoxic respiratory failure. PLAN OF MANAGEMENT: No changes in the plan of therapy of the patient at this time. Continue the patient's current plan as ongoing. Usual care, other supportive plan of therapy, continue antibiotic. Transfer patient to [facility] once accepted and the insurance authorization was received. PATRICA ALLISON MD CM:PNTRANS [phone] PATRICA MIKE MD 06/21/172020 interface
--- NOTE | ~2017-06-10 | PR ---
[place], [place] PROGRESS NOTE NAME: TONI TOSCANO UNIT #: [id number] ROOM: 415 DOCTOR: PATRICA FORD MD BIRTHDATE: [birth year] DOS: 06/17/2017 SUBJECTIVE: The patient has been noted comfortable at this time without any acute distress at this time. Coughing has been still present intermittently, but slowly subsiding. Shortness of breath has been improving. Wheezing was decreased. The patient has used the BiPAP at night. This morning using oxygen supplementation nasal cannula. Normal temperature. OBJECTIVE: VITAL SIGNS: Respiratory rate 18, heart rate 77, blood pressure 179/83 to 125/57. The pulse oxygen saturation on 6 liters high flow nasal cannula this morning was 98% saturation. HEENT: Examination shows no acute change. Head: Atraumatic. Eyes: Nonicterus. NECK: Supple. CARDIOVASCULAR: S1, S2 audible. LUNGS: Decreased sounds in the lower portion of the lungs as well as expiratory wheezing noted in the lungs, which were mild. ABDOMEN: Soft, nontender. EXTREMITIES: Without any acute edema. LABORATORY DATA: CBC: WBC count 4.3, hemoglobin 10.4, platelet count were normal. CMP this morning, normal BUN and creatinine. IMPRESSION: 1. Acute bilateral pneumonia, gram-negative and gram-positive infection with aspiration is very likely. 2. Resolving acute exacerbation of chronic obstructive pulmonary disease and it is improving. Acute respiratory failure with chronic respiratory failure. PLAN OF THERAPY: Continue antibiotics, bronchodilators, and oxygen supplementation. Plan for this patient is [facility]. She was also planned for having a PICC line insertion for the antibiotic administration. Continue oral and intravenous antibiotics and corticosteroids. [place], [place] PROGRESS NOTE NAME: TONI TOSCANO UNIT #: [id number] ROOM: 415 DOCTOR: PATRICA FORD MD BIRTHDATE: [birth year] PATRICA ALLISON MD CM:PNTRANS [id number] PATRICA MIKE MD 06/17/17 1311 interface
--- NOTE | ~2017-06-10 | PR ---
[place], [place] PROGRESS NOTE NAME: TONI TOSCANO UNIT #: [id number] ROOM: 415 DOCTOR: GUY PADILLA MD BIRTHDATE: [birth year] DOS: 06/14/2017 SUBJECTIVE: The patient is complaining of severe mid back pains where she has had ____. OBJECTIVE: GENERAL APPEARANCE: The patient is alert and oriented x 3, in no visible distress, except for generalized weakness.. HEENT AND NECK: Exam within normal limits. CARDIOVASCULAR SYSTEM: Heart rate is regular in rate and rhythm. S1 and S2 normally audible. LUNGS: The patient somewhat short of breath and wearing oxygen at 8 liters per minute by nasal cannula. ABDOMEN: Soft, nontender. No obvious organomegaly. Bowel sounds are present. EXTREMITIES: Without significant cyanosis or edema. IMPRESSION: 1. The patient with acute exacerbation of chronic obstructive pulmonary disease and hypoxemic respiratory failure, being followed by it applications analyst and also she is receiving bronchodilators, oxygen and antibiotics. 2. Bilateral lower lung pneumonia, now being treated with IV vancomycin by Dr. Sandy. 3. Severe pain at T8 in the mid back, where she had a compression fracture and patient says hydrocodone is not helping enough. The patient will be restarted on fentanyl patch to keep her more comfortable. 4. Late onset Alzheimer's type dementia. The patient is already on rivastigmine. She is mostly oriented. 5. Moderate protein calorie malnutrition. The patient is working with dietary. 6. Adult failure to thrive with recurrent falls. The patient is [facility]. 7. Benign essential hypertension, treated and controlled, but blood pressure was somewhat high during this admission, also related to her pain. I am adding Norvasc to the treatment also. 8. Overall poor long-term prognosis with persistent hypoxemia. The patient had been on hospice before, but she discontinued hospice services. [place], [place] PROGRESS NOTE NAME: TONI TOSCANO UNIT #: [id number] ROOM: 415 DOCTOR: GUY PADILLA MD BIRTHDATE: [birth year] GUY PADILLA MD CM:PNTRANS [phone] GUY PADILLA MD 06/14/17 1127 interface
--- NOTE | ~2017-06-10 | PR ---
[place], [place] PROGRESS NOTE NAME[id number] UNIT #: [id number] ROOM: 415 DOCTOR: ESTEFANY MIKE MD,PATRICA BIRTHDATE: [birth year] DOS: 06/15/2017 PULMONARY PROGRESS NOTE SUBJECTIVE: She has been still noted with coughing, which is gradually subsiding. Her appetite was better. Denies symptoms of chest pain. Shortness of breath is improving using the BiPAP intermittently. Denies symptoms of abdominal pain, nausea, vomiting or hemoptysis at the present time, which were reported by the patient previously. Sputum culture results are finalized for the patient, noted gram-negative and gram-positive organism. She denies symptoms of abdominal pain. She denies any symptoms of dizziness. General weakness and fatigue were noted. Remaining systems were reviewed and they were noted all negative. OBJECTIVE: VITAL SIGNS: Normal temperature, respiratory rate of 18, heart rate of 81, blood pressure 149/69. Pulse oxygen saturation on 8 liters high flow nasal cannula was 96% saturation. HEENT: No acute change. NECK: Supple. CARDIOVASCULAR: S1, S2 audible. LUNGS: Decreased breath sounds in lower portion of the lungs bilaterally with expiratory wheezing noted. ABDOMEN: Soft, nontender, flat. EXTREMITIES: Without any edema. SKIN: Scattered bruising, which is chronic, medication related. MUSCULOSKELETAL: Without any gross deformities. CENTRAL NERVOUS SYSTEM: No focal deficit. Cranial nerves 2-12 intact. LABORATORY DATA: CMP today: Glucose 48, potassium 3.0, AST 48, ALT of 81. Culture of the sputum shows light growth of MRSA as well as Klebsiella pneumoniae. The Klebsiella pneumonia was noted sensitive to multiple antibiotics. CBC: WBC count 4.6, hemoglobin 9.3, hematocrit 31.6, platelet count 124,000. IMPRESSION: 1. The patient with pancytopenia, most likely related to current acute infection, acute polymicrobial pneumonia, gram-positive and gram-negative secondary to aspiration. 2. Acute on chronic hypercapnic and hypoxic respiratory failure. 3. Hypokalemia. 4. Mild abnormal liver function test, maybe related to the current infection or other etiologies to be explored. 5. Bilateral lower lobe pneumonia. 6. Severe muscle deconditioning. PLAN OF THERAPY: The patient was getting intravenous antibiotic as vancomycin for the medical management of MRSA pneumonia. She has been noted allergies to multiple antibiotics including cephalosporins reported. However, the patient was given previously Zosyn, which seemed to be well tolerated. Continuation of [place], [place] PROGRESS NOTE NAME: [facility] [id number] UNIT #: [id number] ROOM: [facility] DOCTOR: ESTEFANY MIKE MD,PATRICA BIRTHDATE: [birth year] the corticosteroids and the bronchodilators. Vancomycin will be continued. She will be started on oral doxycycline for the medical management of current Klebsiella pneumoniae because a light growth was noted. Monitor chest x-ray. The patient stated that she has been planned for assessment, possible transfer to the custodial facility if approved from the insurance. In the meantime, we will continue the current plan of therapy for the patient without any other changes. All other previous treatment outlined will be continued. Monitor chest x-ray intermittently. PATRICA ALLISON MD CM:PNTRANS [phone] PATRICA MIKE MD 06/15/17 1031 interface
--- NOTE | ~2017-06-10 | PR ---
[place], [place] PROGRESS NOTE NAME[id number] UNIT #: [id number] ROOM: 415 DOCTOR: ESTEFANY MIKE MD,PATRICA BIRTHDATE: [birth year] DOS: 06/24/2017 SUBJECTIVE: She has been noted comfortable at this time. Plan for possible home discharge with the hospice care. She denies symptoms of chest pain. She has been doing very well. The patient received intravenous antibiotic. The patient is on oral antibiotics for the medical management of acute pneumonia. The oxygen supplementation has been continuing with the nasal cannula. Using the BiPAP is advised. OBJECTIVE: VITAL SIGNS: This morning, normal temperature, respiratory rate 18, heart rate 64, blood pressure 121/79. Pulse oxygen saturation recorded as 96% saturation with 6 L high-flow nasal cannula. HEENT: No acute change. NECK: Supple. CARDIOVASCULAR: S1, S2 audible. LUNGS: The patient was noted without any wheezing or crackles. Decreased breath sounds are noted in the lower portion of the lungs bilaterally. ABDOMEN: Soft, nontender. EXTREMITIES: Without any acute edema. IMPRESSION: 1. Stable respiratory status was noted at the present time. 2. Resolving acute pneumonia progressively. PLAN OF THERAPY: No changes in the plan from the pulmonary standpoint. Discharge the patient home whenever necessary. Oral Bactrim DS. No other change in treatment will be necessary. PATRICA ALLISON MD CM:PNTRANS [phone] PATRICA MIKE MD 06/24/17 2259 interface
--- NOTE | ~2017-06-10 | PR ---
[place], [place] PROGRESS NOTE NAME: TONI TOSCANO UNIT #: [id number] ROOM: 415 DOCTOR: GUY PADILLA MD BIRTHDATE: [birth year] DOS: 06/18/2017 SUBJECTIVE: The patient continues to feel better. She is down to 6 liters of oxygen per minute and saturating 95% on pulse ox. OBJECTIVE: VITAL SIGNS: Blood pressure 136/76, heart rate of 92 beats per minute, afebrile. GENERAL APPEARANCE: The patient is alert and oriented x 3, in no visible distress, except for generalized weakness. HEENT AND NECK: Exam within normal limits. CARDIOVASCULAR SYSTEM: Heart rate is regular in rate and rhythm. S1 and S2 normally audible. LUNGS: Clear to auscultation. ABDOMEN: Soft, nontender. No obvious organomegaly. Bowel sounds are present. EXTREMITIES: Without significant cyanosis or edema. IMPRESSION: 1. The patient with bilateral lower lung pneumonia with gram positive and negative organisms. 2. Methicillin-resistant Staphylococcus aureus and Klebsiella, being treated with vancomycin intravenously and continues to improve. The patient is waiting for authorization for custodial facility transfer. 3. Benign essential hypertension. Blood pressures are treated and controlled. 4. Coronary artery disease of the [place] vessels, without chest pains. 5. Hypothyroidism, treated with levothyroxine. 6. Late onset Alzheimer's type dementia, being treated with rivastigmine and behavioral issues controlled with Zyprexa. 7. Generalized anxiety disorder. The patient remains on hydroxyzine and lorazepam as needed. 8. Severe mid back pains and compression fracture at T8. Pain is controlled with fentanyl patch. 9. Benign essential hypertension treated and controlled. 10. Acute exacerbation of chronic obstructive pulmonary disease and acute respiratory failure, continues to improve with treatment. 11. Moderate protein calorie malnutrition and overall suboptimal long-term prognosis. [place], [place] PROGRESS NOTE NAME: TONI TOSCANO UNIT #: [id number] ROOM: 415 DOCTOR: GUY PADILLA MD BIRTHDATE: [birth year] GUY PADILLA MD CM:PNTRANS [phone] GUY PADILLA MD 06/18/17 2387 interface
--- NOTE | ~2017-06-10 | PR ---
[place], [place] PROGRESS NOTE NAME: TONI TOSCANO UNIT #: [id number] ROOM: 415 DOCTOR: ESTEFANY MIKE MD,PATRICA BIRTHDATE: [birth year] DOS: 06/13/2017 PULMONARY FOLLOWUP SUBJECTIVE: She has been showing continued, but gradual improvement in respiratory symptom, reduction in symptoms. Coughing has been still noted with intermittent sputum expectoration, complaining of hemoptysis. However, this appeared to be probably serafin sputum more than hemoptysis. She denies symptoms of chest pain. Denies symptoms of abdominal pain. She has used the BiPAP last night for the patient using oxygen supplementation, other time. This morning, the patient was seen sitting on the chair awake and alert, eating her breakfast. OBJECTIVE: VITAL SIGNS: For the patient, which was recorded this morning showed the temperature noted as normal. The respiratory rate recorded as 18, heart rate 74, blood pressure 132/68. Pulse oxygen saturation was noted on 10 liters high flow nasal cannula 92% saturation. HEENT: Examination shows head was atraumatic. Eyes, nonicterus. NECK: Supple. CARDIOVASCULAR: S1, S2 audible. LUNGS: Noted with moderate reduction in the breath sounds in the lower rather generalized with expiratory wheezing. There were no crackles heard. ABDOMEN: Soft and nontender. EXTREMITIES: Without any acute edema. LABORATORY DATA: Blood culture showed no bacterial growth on 06/10/2017. CBC, hemoglobin 9.4, hematocrit of 31.8. Platelet count was normal. The BMP of patient this morning shows normal BUN and creatinine, CO2 33. Culture of the sputum preliminary noted normal raven with the Gram stain many gram-negative bacilli, gram-negative rods, moderate gram-positive cocci in pairs, chains and clusters. IMPRESSION: 1. The patient with acute pneumonia for the patient with respiratory failure for the patient noted acute on chronic hypercapnic and hypoxia. 2. Acute exacerbation of chronic obstructive pulmonary disease. PLAN OF TREATMENT: Continue current antibiotic treatment for the patient at this time without any changes. Continuation of bronchodilator with oxygen supplementation as ongoing. Other additional treatment changes to be made based on the progression of the illnesses. Monitor results of the sputum culture. No change in antibiotic at this time will be necessary. [place], [place] PROGRESS NOTE NAME: TONI TOSCANO UNIT #: [id number] ROOM: [facility] DOCTOR: PATRICA FORD MD BIRTHDATE: [birth year] PATRICA ALLISON MD CM:PNTRANS [phone] PATRICA MIKE MD 06/13/17 1709 interface
--- NOTE | ~2017-06-10 | WRIGHTHP ---
[place], [place] PATIENT HISTORY AND PHYSICAL EXAM NAME: TONI TOSCANO [facility] #: [id number] UNIT #: [id number] ROOM: 415 DOCTOR: GUY PADILLA MD BIRTHDATE: [birth year] DOS: 06/10/2017 HISTORY OF PRESENT ILLNESS: The patient is a 61-year-old female with a past medical history of: 1. Advanced end-stage COPD, with oxygen dependence. 2. Nicotine smoke dependence. 3. Chronic lower back pains. 4. Hyperlipidemia. 5. Benign essential hypertension. 6. Coronary artery disease of the [place] vessel, with coronary artery bypass grafts. 7. Compression fracture at T8, with chronic mid back pains. 8. Major depression, recurrent, moderate. 9. History of partial hysterectomy. 10. Advance adult failure to thrive. 11. Chronic kidney disease stage 3a. The patient discharged herself from [facility] and presented to the Emergency Department with increased shortness of breath. The patient maintains a DNR/comfort care code status and was found to have pneumonia bilaterally in the lower lungs. The patient was admitted to a regular floor and her breathing continued to get worse until BiPAP was applied in the morning, which made her breathing much better and the patient appears to be improving now. Now the patient is breathing on her own, sitting up in the bed and she is alert and oriented. No complaints of chest pains and patient says her breathing was getting worse for a few days prior to coming to the hospital. REVIEW OF SYSTEMS: LUNGS: Increasing shortness of breath. GASTROINTESTINAL: No nausea, vomiting, diarrhea or constipation. CARDIOVASCULAR: No chest pains or palpitations. FAMILY HISTORY: Noncontributory. HOME MEDICATIONS: MiraLax, Imdur, fluoxetine, aspirin, levothyroxine, Protonix, ____, Paxil, Zyprexa, hydroxyzine, DuoNeb. ALLERGIES: The patient has allergies to CEPHALOSPORINS, QUINOLONES, OXYCODONE, HYDROMORPHONE, ____, LEXAPRO. PHYSICAL EXAMINATION: GENERAL: Alert and oriented x 3, in no visible distress, except for generalized weakness. VITAL SIGNS: Blood pressure 120/65, heart rate 74 beats per minute, breathing 12 times per minute, temperature 98 degrees Fahrenheit. HEENT AND NECK: Extraocular movements are intact. Sclerae are anicteric. Oral mucosa is moist and clean. No obvious facial weakness. Neck is supple without any lymphadenopathy. No thyromegaly. No JVD. No carotid arterial bruits. [place], [place] PATIENT HISTORY AND PHYSICAL EXAM NAME: TONI TOSCANO UNIT #: [id number] ROOM: 415 DOCTOR: GUY PADILLA MD BIRTHDATE: [birth year] LUNGS: Clear to auscultation. No wheezing. No rhonchi. CARDIOVASCULAR SYSTEM: Heart rate is regular in rate and rhythm. S1 and S2 normally audible. No significant murmur or any other abnormal cardiac sounds. ABDOMEN: Soft, nontender. No obvious organomegaly. Bowel sounds are present. No obvious herniation. EXTREMITIES: Without significant cyanosis or edema. Warm to touch. CENTRAL NERVOUS SYSTEM: Alert and oriented x 3. Cranial nerves II-XII are intact. Speech is normal. The patient is able to move all extremities. Normal muscle strength. Deep tendon reflexes are equal on both sides. Plantars were downgoing. LABORATORY DATA: Slight elevation of troponin I levels to 0.3. Chest x-ray is showing bilateral lower lung infiltrates. Elevation of liver enzymes, AST to 220 and ALT 217. IMPRESSION AND PLAN: 1. Acute exacerbation of chronic obstructive pulmonary disease with acute over chronic respiratory failure, improving with BiPAP and DuoNeb along with antibiotic, oxygen and corticosteroids. 2. Bilateral lower lung pneumonia, contributing to acute respiratory failure, is being treated with antibiotics, Zosyn and azithromycin. 3. Acute respiratory failure, improved with BiPAP. 4. Chronic constipation, treated with MiraLax. 5. Coronary artery disease of the [place] vessels, treated with Imdur, aspirin. 6. Late onset Alzheimer's type dementia. The patient remains on rivastigmine, although she has also labeled this medicine as an allergy, but she has no signs of allergy to this medicine since she has been taking this at home and even at the hospital. 7. Chronic back pains and compression fracture at T8 vertebra. Pain is reasonably controlled with present treatment with hydrocodone. 8. Continued nicotine smoke dependence. The patient encouraged to stop. 9. Coronary artery disease of [place] vessels and coronary artery bypass grafts, without any chest pains, with minimal elevation of troponin I levels, which is being evaluated by Cardiology. 10. Benign essential hypertension. Blood pressure is being treated and monitored. 11. Moderate protein calorie malnutrition. The patient is working with dietary. 12. Adult failure to thrive and recurrent falls. The patient is working with Physical Therapy. An hour's time was spent on patient's management and Dr. Sandy, the morning show newscast producer has been consulted to follow her along with Cardiology. [place], [place] PATIENT HISTORY AND PHYSICAL EXAM NAME: TONI TOSCANO UNIT #: [id number] ROOM: [facility] DOCTOR: GUY PADILLA MD BIRTHDATE: [birth year] GUY PADILLA MD CM:HISPHYS:PATIENT HISTORY AND PHYSICAL EXAMINATION [phone] GUY PADILLA MD 06/11/17 1807 interface
--- NOTE | ~2017-06-10 | PR ---
[place], [place] PROGRESS NOTE [facility]: [id number] UNIT #: [id number] ROOM: 415 DOCTOR: ESTEFANY MIKE MD,PATRICA BIRTHDATE: [birth year] DOS: 06/18/2017 SUBJECTIVE: The patient was noted comfortable at this time, resting on the bed for the patient. PICC line replaced yesterday for patient for the intravenous antibiotic infusion. The patient for the pneumonia, which was noted with MRSA as well gram-negative infection. Denies symptoms of chest pain or any hemoptysis. OBJECTIVE: VITAL SIGNS: For the patient which has been recorded. The patient showed the temperature noted normal, respiratory rate 16-18. The heart rate was noted 82, blood pressure 152/77. Pulse oxygen saturation for the patient on 6 liters 96% saturation. HEENT: Examination shows head was atraumatic. Eyes nonicterus. NECK: Supple. CARDIOVASCULAR: S1, S2 is audible. LUNGS: The patient was noted without any wheezing or crackles at present time. ABDOMEN: Soft, nontender, bowel sounds present. EXTREMITIES: Without any acute edema. LABORATORY DATA: The patient's chest x-ray of patient shows small bilateral pleural fluid basilar area of infiltration appeared to be partially improved. IMPRESSION: Bilateral lower lobe pneumonia, gram-positive and gram-negative infection for the patient, which has been treated with intravenous and oral antibiotic. Resolving respiratory failure and mental status changes. PLAN OF TREATMENT: Continuation of the current plan for the patient previously. Usual care, other supportive plan of therapy and management plan. PATRICA ALLISON MD CM:PNTRANS [phone] PATRICA MIKE MD 06/18/17 1652 interface
--- NOTE | ~2017-06-10 | PR ---
[place], [place] [id number] UNIT #: [id number] ROOM: 415 DOCTOR: ESTEFANY MIKE MD,PATRICA BIRTHDATE: [birth year] DOS: 06/22/2017 SUBJECTIVE: The patient was noted comfortable at this time without any acute distress, resting comfortably and sitting on the bed. Denies symptoms of chest pain, shortness of breath, cough has been improving progressively. There were no symptoms of abdominal pain. OBJECTIVE: VITAL SIGNS: Normal temperature, respiratory rate 20, heart rate 72, blood pressure 156/60. Pulse oxygen saturation on 6 liters canula 97% saturation. HEENT: Examination shows head was atraumatic. Eyes nonicterus. NECK: Supple. CARDIOVASCULAR: S1, S2 is audible. LUNGS: The patient was noted without any wheezing or crackles. ABDOMEN: Soft, nontender. IMPRESSION: Stable respiratory status noted for the patient, resolving acute pneumonia with intravenous and oral antibiotics. Gram-negative and gram-positive including methicillin-resistant staphylococcus aureus. Improving acute exacerbation of chronic obstructive pulmonary disease, acute on chronic hypoxic and hypercapnic respiratory failure. PLAN OF TREATMENT: The patient could be discharged to the home today after the chest x-ray reviewed. The patient showing appropriate improvement on oral antibiotics administration. Supportive therapy, plan of management and care plan. PATRICA ALLISON MD CM:PNTRANS [phone] PATRICA MIKE MD 06/22/17 2238 interface
--- NOTE | ~2017-06-10 | PR ---
[place], [place] PROGRESS NOTE NAME[facility] [id number] UNIT #: [id number] ROOM: 415 DOCTOR: GUY PADILLA MD BIRTHDATE: [birth year] DOS: 06/20/2017 SUBJECTIVE: The patient's discharge to [facility] still has not been arranged because of insurance issues, so she is still waiting for her discharge. The patient continues to feel better. OBJECTIVE: VITAL SIGNS: Blood pressure 151/65, heart rate 82 beats per minute, breathing 20 times per minute, temperature 98.1 degrees Fahrenheit. GENERAL APPEARANCE: The patient is alert and oriented x 3, in no visible distress, except for generalized weakness. HEENT AND NECK: Exam within normal limits. CARDIOVASCULAR SYSTEM: Heart rate is regular in rate and rhythm. S1 and S2 normally audible. LUNGS: Clear to auscultation. ABDOMEN: Soft, nontender. No obvious organomegaly. Bowel sounds are present. EXTREMITIES: Without significant cyanosis or edema. IMPRESSION: 1. Bilateral pneumonia with methicillin-resistant Staphylococcus aureus and Klebsiella, being treated with doxycycline and vancomycin. 2. Bilateral lower lobe pneumonia. 3. Benign essential hypertension. Blood pressure is being monitored and treated. 4. Coronary artery disease of the [place] vessels, without chest pains. 5. Adult failure to thrive, generalized weakness. The patient is working with physical therapy. 6. Severe mid back pains with T8 compression fracture in the past, being treated and controlled with fentanyl patch. 7. Moderate protein calorie malnutrition. The patient being encouraged to eat and is being followed by Dietary. 8. Hypothyroidism, replaced with supplements. GUY PADILAL MD CM:PNTRANS [phone] GUY PADILLA MD 06/20/172226 interface
--- NOTE | ~2017-06-10 | PR ---
[place], [place] PROGRESS NOTE [id number] UNIT #: [id number] ROOM: 415 DOCTOR: RAÚL MCCABE MD BIRTHDATE: [birth year] DOS: SUBJECTIVE: The patient is up in a chair, did ambulate with Physical Therapy. She does not have any complaints, other than some numbness in her left foot. OBJECTIVE: VITAL SIGNS: Graphic trend shows blood pressure 125/57, pulse of 76, respirations 18, temperature 97.9. LUNGS: Clear. HEART: Regular. ABDOMEN: Soft, scaphoid. EXTREMITIES: No edema. LABORATORY DATA: Glucose 74, BUN 9, creatinine 0.63. Electrolytes were normal. WBC count is 4.3, hemoglobin 10.4, platelets 142. ASSESSMENT AND PLAN: 1. Acute exacerbation of chronic obstructive pulmonary disease. The patient is improving. 2. Methicillin-resistant Staphylococcus aureus, Klebsiella pneumoniae of the sputum, on IV antibiotics. PICC line is going to be placed today. 3. Adult failure to thrive, to go to a rehab center when her insurance pre-certifies her. RAÚL MCCABE MD CM:PNTRANS [id number] RAÚL MCCABE MD 06/17/17 0933 interface
--- NOTE | ~2017-06-10 | PR ---
[place], [place] PROGRESS NOTE NAME: TONI TOSCANO UNIT #: [id number] ROOM: 415 DOCTOR: PATRICA FORD MD BIRTHDATE: [birth year] DOS: 06/16/2017 SUBJECTIVE: The patient remains comfortable at this time, noted with gradual reduction in symptoms of shortness breath. Cough has been noted with some sputum expectoration at time. Comfortably resting in the bed using oxygen supplementation via nasal cannula, also using the BiPAP for the patient intermittently. OBJECTIVE: VITAL SIGNS: For the patient which has been recorded shows normal temperature, respiratory rate 22, heart rate 76, blood pressure 160/70 and 148/75. HEENT: Shows no acute change. NECK: Supple. CARDIOVASCULAR: S1, S2 audible. LUNGS: Moderate decreased breath sounds bilaterally. The patient with crackles at the right lower lung. ABDOMEN: Soft and nontender. EXTREMITIES: Without any acute edema. LABORATORY DATA: BMP today: BUN and creatinine were normal, potassium 3.1. CBC: WBC count 4.7, hemoglobin 9.9, hematocrit 33.0, and platelet count was normal. Blood culture, no bacterial growth on the 5th as final results. IMPRESSION: 1. Acute lower lobe pneumonia. The patient from aspiration with gram-negative and gram-positive organisms. 2. Leukopenia for this patient was also noted. 3. Mild hypokalemia. PLAN OF THERAPY: Supplementation of the potassium per primary care physician. Continuation of the bronchodilators and oxygen supplementation. Continue current antibiotic combination. She was planned for PICC line insertion tomorrow and possible consideration [facility] as [facility]. [place], [place] PROGRESS NOTE NAME: TONI TOSCANO UNIT #: [id number] ROOM: 415 DOCTOR: PATRICA FORD MD BIRTHDATE: [birth year] PATRICA ALLISON MD CM:PNTRANS [id number] PATRICA MIKE MD 06/16/17 1308 interface
--- NOTE | ~2017-06-10 | PR ---
[place], [place] PROGRESS NOTE NAME: TONI TOSCANO [facility] #: [id number] UNIT #: [id number] ROOM: 415 DOCTOR: GUY PADILLA MD BIRTHDATE: [birth year] DOS: 06/21/2017 SUBJECTIVE: The patient is a 61-year-old female, presently receiving antibiotics for pneumonia and she was severely hypoxemic, but gradually improving. OBJECTIVE: VITAL SIGNS: Blood pressure 139/61, heart rate of 84 beats per minute, breathing 18 times per minute, temperature 98.6 degrees Fahrenheit. GENERAL APPEARANCE: The patient is alert and oriented x 3, in no visible distress, generalized weakness. HEENT AND NECK: Exam within normal limits. CARDIOVASCULAR SYSTEM: Heart rate is regular in rate and rhythm. S1 and S2 normally audible. LUNGS: Clear to auscultation. ABDOMEN: Soft, nontender. No obvious organomegaly. Bowel sounds are present. EXTREMITIES: Without significant cyanosis or edema. IMPRESSION: 1. Bilateral pneumonia with methicillin-resistant Staphylococcus aureus and Klebsiella receiving doxycycline and vancomycin. 2. Benign essential hypertension. Blood pressure is being monitored and treated. 3. Coronary artery disease of [place] vessels without chest pain. 4. Adult failure to thrive, generalized weakness. The patient working with physical therapy. 5. Severe mid back pains with T8 compression fractures. Finally, the patient's pain is controlled with fentanyl patch. 6. Moderate protein calorie malnutrition. The patient working with dietary and eating better. 7. Hypothyroidism, replaced with supplements. GUY PADILLA MD CM:PNTRANS [phone] GUY PADILLA MD 06/22/17 0546 interface
--- NOTE | ~2017-06-10 | PR ---
[place], [place] PROGRESS NOTE NAME: TONI TOSCANO [facility] #: [id number] UNIT #: [id number] ROOM: 415 DOCTOR: ESTEFANY MIKE MD,PATRICA BIRTHDATE: [birth year] DOS: 06/12/2017 SUBJECTIVE: The patient was noted comfortable at this time, resting on the bed. She has been noted improvement in the respiratory term yesterday with improving mental status is continued. Denies symptoms of chest pain. Cough has been noted. The patient with sputum expectoration, which was noted somewhat blood tinged. The remaining review of systems was noted as normal. The pain in the back was noted well controlled. OBJECTIVE: VITAL SIGNS: Show pulse ox saturation recorded on 2 liter nasal cannula high flow 92% with the BiPAP, 93% saturation. The temperature was normal. The respiratory rate of 20. Heart rate of 76-100, blood pressure 107/60-170/83. HEENT: Examination shows head was atraumatic. Eyes nonicterus. NECK: Supple. CARDIOVASCULAR: S1, S2 audible. LUNGS: The patient noted with moderate reduction in the breath sounds bilaterally with expiratory wheezing. The patient was still present, moderately. Scattered crackles in the lower portion of the lungs. ABDOMEN: Flat, soft, nontender. EXTREMITIES: Without any acute edema. SKIN: Was noted without lesions or rashes. MUSCULOSKELETAL: The patient without any acute deformities. LABORATORY DATA: Shows a bilateral lower lobe pulmonary infiltration and acute pneumonia with associated small pleural effusions. Changes of COPD, hyperinflation was noted. CBC of the patient this morning, hemoglobin 9, hematocrit 30.5, WBC count were normal. Platelet count was 109,000. BMP noted normal BUN and creatinine. Glucose 107. IMPRESSION: 1. The patient with acute hypercapnic hypoxic respiratory failure for the patient with chronic hypoxia and hypercapnia. 2. Acute bilateral lower lobe pneumonia was also noted at this time, treated with antibiotic. 3. Small hemoptysis, most likely related to current acute pneumonia. 4. History of nicotine abuse. 5. Metabolic alkalosis. 6. Chronic pain syndrome as well. 7. Small pleural fluid related to the current acute pneumonia. PLAN OF THERAPY: The patient would be continued on the current plan of therapy with bronchodilators, oxygen supplementation and the antibiotics. Continue the BiPAP with oxygen supplementation intermittently. Sputum for Gram stain culture was sent. Monitoring the hemoptysis closely. No changes at this time will be necessary with current assessment. Usual care, other supportive plan of therapy and care. [place], [place] PROGRESS NOTE NAME: TONI TOSCANO UNIT #: [id number] ROOM: [facility] DOCTOR: ESTEFANY MIKE MD,PATRICA BIRTHDATE: [birth year] PATRICA ALLISON MD CM:PNTRANS [phone] PATRICA MIKE MD 06/12/17 2006 interface
--- NOTE | ~2017-06-10 | PR ---
[place], [place] PROGRESS NOTE NAME: TONI TOSCANO [facility] #: [id number] UNIT #: [id number] ROOM: 415 DOCTOR: GUY PADILLA MD BIRTHDATE: [birth year] DOS: 06/12/2017 SUBJECTIVE: The patient continues to improve. She is breathing better. OBJECTIVE: VITAL SIGNS: Blood pressure 172/83, heart rate 76 beats per minute, breathing 20 times per minute, temperature 98 degrees Fahrenheit. GENERAL APPEARANCE: The patient is alert and oriented times 3, in no visible distress. HEENT AND NECK: Exam within normal limits. CARDIOVASCULAR SYSTEM: Heart rate is regular in rate and rhythm. S1 and S2 normally audible. LUNGS: Expiratory wheezing and slightly decreased breath sounds on lung auscultation and generalized weakness. ABDOMEN: Soft, nontender. No obvious organomegaly. Bowel sounds are present. EXTREMITIES: Without significant cyanosis or edema. IMPRESSION: 1. The patient with acute exacerbation of severe underlying chronic obstructive pulmonary disease with continued nicotine smoke dependence with acute over chronic respiratory failure, was treated with BiPAP on as needed basis, DuoNeb, oxygen, antibiotic and corticosteroids. The patient is starting to breathe better. 2. Adult failure to thrive, advanced disability. The patient was on hospice prior to the patient stopping her hospice care and coming to the hospital. 3. Bilateral lower lung pneumonia being treated with Zosyn and azithromycin. 4. Chronic constipation, treated and controlled. 5. Coronary artery disease of the [place] vessels without chest pains. The patient on Imdur and aspirin. 6. Late onset Alzheimer's type dementia, treated and controlled. The patient remains on rivastigmine. 7. Compression fracture at T8 vertebra which is old with chronic back pains, was controlled with hydrocodone, presently we are trying her on 1000 mg of Tylenol given 3 times a day. 8. Coronary artery disease of the [place] vessels with coronary artery bypass grafts, presently asymptomatic, no chest pains, minor elevation of troponin levels for which cardiology was consulted. The patient also maintains a comfort care code status. 9. Moderate protein calorie malnutrition. The patient being encouraged to eat. Dietary are following. 10. Adult failure to thrive with recurrent falls. The patient to work with physical therapy and a consult has been obtained [facility]. 11. Benign essential hypertension treated and controlled. [place], [place] PROGRESS NOTE NAME: TONI TOSCANO UNIT #: [id number] ROOM: 415 DOCTOR: GUY PADILLA MD BIRTHDATE: [birth year] GUY PADILLA MD CM:PNTRANS [id number] GUY PADILLA MD 06/13/17 0242 interface
--- NOTE | ~2017-06-10 | CON ---
[place], [place] REPORT OF CONSULTATION [id number] UNIT #: [id number] ROOM: 415 DOCTOR: PATRICA FORD MD BIRTHDATE: [birth year] DOS: 06/11/2017 PULMONARY CONSULTATION EVALUATION AND MANAGEMENT REASON FOR CONSULTATION: To assess the patient for acute pneumonia. HISTORY OF PRESENT ILLNESS: A 61-year-old white female known to me very well. She has been noted end-stage COPD with chronic hypoxic respiratory failure and other issues. Currently, the patient has been treated under the hospice services. She has been admitted to this hospital under the care of Dr. Heard on 06/10/2017. She was brought to the hospital by the EMS as the patient has been noted progressive increased shortness of breath about 3 days prior to admission. The patient was noted with also change in mental status with a cough. The cough has been noted essentially without any sputum expectoration or chest congestion noted. The patient does report symptoms of wheezing as well. She has been noted fatigued and tired. She has been currently placed on the BiPAP. The patient is using the BiPAP this morning of assessment. She stated this has helped, but still noted significant cough and other symptoms ongoing. REVIEW OF SYSTEMS: CONSTITUTIONAL SYMPTOMS: Fatigue and tiredness reported. Denies symptoms of fever or chills. EYES: Denies any burning, redness, or tenderness. EARS, NOSE, AND THROAT SYMPTOMS: Denies sore throat, hoarseness, otalgia, postnasal drainage or epistaxis. CARDIOVASCULAR: Denies any pain, edema, or pain of the lower extremities. GASTROINTESTINAL: Denies dysphagia, nausea, vomiting, diarrhea, abdominal pain, hematemesis, melena, hematochezia, or any recent abnormal weight loss history. GENITOURINARY: Denies urinary incontinence, dysuria, suprapubic pain, hematuria. MUSCULOSKELETAL: Chronic pain for this patient, which has been known without any acute new symptoms. SKIN: Denies lesions or rashes. CENTRAL NERVOUS SYSTEM: General weakness and fatigue was reported. Remaining systems were reviewed with the patient, they were noted all negative. PAST MEDICAL HISTORY: 1. Noted with the recent hospitalization in this hospital in 04/2017 for this patient treated for exacerbation of COPD and then discharged home with hospice services. 2. History of advanced COPD/centrilobular emphysema. 3. History of recurrent falls as well. 4. Hypercholesterolemia. 5. Chronic back pain with degenerative arthritis and intervertebral disk disease. 6. Essential hypertension. 7. Thyroid nodule. 8. Restless leg syndrome. 9. Idiopathic daytime hypersomnia. [place], [place] REPORT OF CONSULTATION NAME: TONI TOSCANO UNIT #: [id number] ROOM: [facility] DOCTOR: PATRICA FORD MD BIRTHDATE: [birth year] 10. Hypothyroidism. 11. Anxiety disorder and depression. PAST SURGICAL HISTORY: 1. Coronary artery bypass grafting. 2. Partial hysterectomy. 3. Hiatal hernia repair. 4. Arthroplasty of the left shoulder. 5. Removal of the neuroma from the skin. 6. Left breast lumpectomy. SOCIAL HISTORY: The patient is . She with daughter lives at home. She denies any history of alcohol use. The patient has been noted with history of past tobacco use from the age of [age] years old a pack of cigarettes per day. Tobacco cessation use was noted lately. There was no history of illicit drug use. No occupation related pulmonary exposure. FAMILY HISTORY: Father at 69 years of complication of myocardial infarction. Mother at 46 of complication of lung cancer. CURRENT MEDICATIONS: Administered were noted use of Imdur, Prozac, aspirin, levothyroxine, Protonix, Exelon patch, Requip, olanzapine, hydroxyzine, DuoNeb, Dulera, Zithromax, IV Zosyn, Lyrica, morphine sulfate and other p.r.n. medications. DRUG ALLERGIES: NOTED ALLERGIES: 1. CEPHALOSPORINS. 2. FLUOROQUINOLONES. 3. OXYCODONE. 4. ASPARTAME. 5. DILAUDID. 6. MOXIFLOXACIN. 7. LEXAPRO. PHYSICAL EXAMINATION: GENERAL: A 61-year-old female who was been currently noted to be awake and alert without any distress on the BiPAP. The patient's height of 5 feet 2 inches, weight 180 pounds, BMI 21.7. VITAL SIGNS: Normal temperature. The respiratory rate of the patient recorded as 16-18. The heart rate of the patient ranged between 101-68. Blood pressure 162/77-142/72. The pulse oxygen saturation of the patient recorded as 90% with the BiPAP on admission 83% on 5 liter nasal cannula. HEENT: Examination shows head was atraumatic. Eyes nonicterus. NECK: Supple. CARDIOVASCULAR: S1, S2 audible. LUNGS: Expiratory wheezing noted in the lungs bilaterally. Decreased breath sounds in the lower lungs. There are no crackles. ABDOMEN: Soft, nontender. EXTREMITIES: Without any edema. MUSCULOSKELETAL: Without any deformities. [place], [place] REPORT OF CONSULTATION NAME: TONI TOSCANO UNIT #: [id number] ROOM: [facility] DOCTOR: ESTEFANY MIKE MD,PATRICA BIRTHDATE: [birth year] CENTRAL NERVOUS SYSTEM: Current appear to be intact. No focal deficit visible. SKIN: No lesions or rashes. MUSCULOSKELETAL: Without acute deformity. LABORATORY DATA: The patient's CBC that was done yesterday, WBC count 15.1, hemoglobin 11.3, platelet count were normal, 99% segmented neutrophils. CMP of the patient today, BUN 27, creatinine was 0.87. Sodium 135. CO2 of 35. AST 220, AST 217. Troponin minimally elevated 0.088. The second set of 0.30. BMP of the patient, normal BUN and creatinine. Sodium 135. CBC this morning: WBC count normal, hemoglobin 9.7, hematocrit 32.1, platelet count 104,000. The chest x-ray 1 view showed bilateral basilar infiltration. The patient noted with small pleural effusions. IMPRESSION: 1. The patient who has been currently admitted to the hospital would be considered with acute aspiration pneumonia, acute on chronic severe hypoxic and hypercapnic respiratory failure, very likely. 2. The patient with advanced chronic obstructive pulmonary disease as well. 3. Metabolic alkalosis secondary to hypercarbia. 4. Idiopathic daytime hypersomnia as well. 5. The patient with multiple other medical problems as noted in the past. 6. Acute exacerbation of chronic obstructive pulmonary disease secondary to acute pneumonia. PLAN OF TREATMENT: Continue current combination antibiotic with multiple other allergies known on this patient. Hold off use of the vancomycin for the patient at this time. If the patient's pneumonia worsens or clinical worsening noted, certainly the vancomycin will be added to the treatment. At this time, the current medical antibiotic coverage will be continued. Supportive therapy, plan of management. Continue current BiPAP. The patient is helping the patient. Supportive care. All the comfort measures. Palliative care. Followup chest x-ray to assess the pleural fluid. The patient currently noted small at this time, would not require any thoracentesis. In case of worsening of the patient, thoracentesis could be done. Addition of Solu-Medrol for the medical management of acute exacerbation of COPD. PATRICA ALLISON MD CM:CONSTR:REPORT OF CONSULTATION 1159 06/12/17 0026 interface
--- NOTE | ~2017-06-10 | PR ---
[place], [place] PROGRESS NOTE NAME: [facility] [id number] UNIT #: [id number] ROOM: 415 DOCTOR: ESTEFANY MIKE MD,PATRICA BIRTHDATE: [birth year] DOS: 06/19/2017 SUBJECTIVE: The patient was noted comfortable at this time without any acute distress. She has been sitting on the bed for the patient. Using the oxygen supplementation with nasal cannula. Denies symptoms of hemoptysis. OBJECTIVE: VITAL SIGNS: For the patient which has been recorded shows temperature noted as normal, respiratory rate 18, heart rate 83, and blood pressure 159/57. HEENT: Showed no new change. NECK: Supple. CARDIOVASCULAR: S1, S2 audible. LUNGS: The patient was noted without any wheeze or crackles at the present time. Breaths are noted decreased at lower portion of the lungs bilaterally. ABDOMEN: Flat, soft, and nontender. EXTREMITIES: Without any acute edema. IMPRESSION: 1. Resolving acute hypercapnic and hypoxic respiratory failure for the patient progressively with acute pneumonia with gram-negative organisms as well as methicillin-resistant staphylococcus aureus. 2. Overall severe debility, which is improving gradually with quite significant physical therapy. 3. Chronic pain, which seemed to be controlled. PLAN OF THERAPY: No changes in the plan for the patient at this time of treatment will be necessary. She is awaiting for authorization and transfer to [facility]illed [facility] Facility for further continued care. In the meantime, other previous treatment as ongoing will be continued. PATRICA ALLISON MD CM:PNTRANS [id number] PATRICA MIKE MD 06/19/17 1548 interface
--- NOTE | ~2017-06-10 | DS ---
[place], [place] DISCHARGE SUMMARY NAME: TONI TOSCANO UNIT #: [id number] ROOM: 415 DOCTOR: RANDY FLYNNGUY J BIRTHDATE: [birth year] DOS: 06/19/2017 PROBABLE DATE OF DISCHARGE: 06/19/2017. DISCHARGE DIAGNOSES: 1. Bilateral pneumonia with methicillin-resistant Staphylococcus aureus and Klebsiella, treated with antibiotics and doxycycline and vancomycin. 2. Bilateral lower lobe pneumonia. 3. Benign essential hypertension. 4. Coronary artery disease of the [place] vessels. 5. Hypothyroidism. 6. Late onset Alzheimer's type dementia. 7. Generalized anxiety disorder. 8. Severe mid back pains and previous history of compression fracture at T8. 9. Advanced chronic obstructive pulmonary disease and centrilobular emphysema with continued nicotine smoke dependence. 10. Nicotine smoke dependence. 11. Moderate protein calorie malnutrition. HOSPITAL COURSE: The patient was admitted with increased shortness of breath, hypoxemia and pneumonia. The patient was in very poor condition and she had discontinued her hospice at home before coming to the Emergency Department. The patient was diagnosed as having bilateral pneumonia and was admitted with a DNR/comfort care code status. The patient was treated with BiPAP. She was severely hypoxemic and in acute respiratory failure. The patient was given antibiotics, oxygen and bronchodilators. The patient's condition improved very slowly, but she remained severely hypoxemic. No facility in the area was accepting her as a patient for senior living and finally we are trying to make arrangement with [facility] to transfer her there for continued IV antibiotics, oxygen, breathing treatments along with physical therapy. Palliative care consulted to follow the patient since she had discontinued her hospice before coming to the hospital. Benign essential hypertension. Blood pressure is better controlled. She is on Norvasc now. Coronary artery disease of [place] vessels, without chest pain. Hypothyroidism, treated with levothyroxine, followed with thyroid levels. Late onset Alzheimer's type dementia, being treated and controlled. Generalized anxiety disorder. The patient remains on hydroxyzine. Severe mid back pains with compression fracture at T8 in the past. The patient was started on a fentanyl patch to control the pain and she is somehow feeling better. Acute exacerbation of COPD and acute over chronic respiratory failure, treated [place], [place] DISCHARGE SUMMARY NAME: TONI TOSCANO UNIT #: [id number] ROOM: [facility] DOCTOR: RANDY FLYNNGUY Traylor BIRTHDATE: [birth year] with bronchodilators, oxygen, corticosteroids and her breathing has improved. Moderate protein calorie malnutrition. The patient was encouraged to eat and followed by Dietary. LABORATORY DATA: White cell count of 4300, hemoglobin 10.4, normal platelets. Normal serum electrolytes. Albumin low at 2.5. Blood cultures were negative. DISCHARGE MANAGEMENT: Vancomycin to be continued for 1 week IV, potassium chloride 8 mEq daily, amlodipine 5 mg a day, Tylenol p.r.n., ondansetron which is Zofran 8 mg every 8 hours as needed, MiraLax 17 grams daily, Imdur 60 mg a day, fluoxetine 80 mg a day, aspirin 325 mg a day, levothyroxine 50 mcg daily, Protonix 40 mg a day, rivastigmine 3 mg b.i.d., pramipexole 1 mg b.i.d., Zyprexa 2.5 mg b.i.d., hydroxyzine 25 mg 3 times a day, DuoNeb every 4 hours, Dulera 200 mcg twice a day, Vicodin 10/325 mg q.i.d. p.r.n. for breakthrough pain, Lyrica 25 mg b.i.d., doxycycline 100 mg b.i.d. for 2 weeks, then to be stopped, lorazepam 1 mg every 8 hours p.r.n. for anxiety, IV vancomycin 750 mg 2 times a day for 1 week, fentanyl patch 50 mcg every 3 days. ADDENDUM The patient finally agreed to be discharged to home with hospice for end of life care. The patient was treated for bilateral pneumonia with MRSA and Klebsiella and case was discussed with Dr. Sandy who has asked me to give her 5 more days of Bactrim-DS. For severe back pain and T8 compression fracture, the pains are better controlled with fentanyl patch, which is being continued and she can get morphine as needed. Benign essential hypertension, with controlled blood pressures with treatment. Nicotine smoke dependence. The patient has been encouraged to stop smoking cigarettes. Moderate protein calorie malnutrition and poor prognosis. Adult failure to thrive. Coronary artery disease of the [place] vessels, without chest pains. Generalized anxiety disorder. The patient continued on Ativan as needed. [place], [place] DISCHARGE SUMMARY NAME: TONI TOSCANO UNIT #: [id number] ROOM: 415 DOCTOR: GUY PADILLA MD BIRTHDATE: [birth year] GUY PADILLA MD CM:ALEENA [id number] GUY PADILLA MD 06/24/17 1826 interface
--- NOTE | ~2017-06-10 | PR ---
[place], [place] PROGRESS NOTE [id number] UNIT #: [id number] ROOM: 415 DOCTOR: RAÚL MCCABE MD BIRTHDATE: [birth year] DOS: 06/16/2017 SUBJECTIVE: The patient is doing much better this morning, does not have any new complaints. OBJECTIVE: VITAL SIGNS: Graphic trend shows a pressure of 160/70, pulse of 76, respirations 22, temperature 98.2. LUNGS: Diminished breath sounds, clear. HEART: Regular. ABDOMEN: Obese. EXTREMITIES: Without any edema. LABORATORY DATA: WBC count is 4.7, hemoglobin 9.9, hematocrit 33.0, platelets 143. Comprehensive glucose 80, BUN 8, creatinine 0.63, sodium 140, potassium 3.1, chloride 98. Blood culture, no bacterial growth. ASSESSMENT AND PLAN: 1. Acute exacerbation of chronic obstructive pulmonary disease, improving. 2. Sputum culture with Klebsiella pneumoniae and MRSA, on IV antibiotics. PICC line order has been given, to be placed tomorrow. 3. Adult failure to thrive. Arrangements are being made to go to a rehabilitation. We do not have a bed for her yet. Hopefully, we can arrange for that tomorrow. 4. Hypokalemia. Supplementation given. 5. Abnormal LFTs, which is definitely better than when she was admitted. RAÚL MCCABE MD CM:PNTRANS [id number] RAÚL MCCABE MD 06/16/17 9960 interface
--- NOTE | ~2017-06-10 | EKG ---
[place], [place] ELECTROCARDIOGRAM REPORT NAME: TONI TOSCANO UNIT #: [id number] ROOM: 415 DOCTOR: ESTEFANY MIKE MD,PATRICA BIRTHDATE: [birth year] DOS: 06/10/2017 The electrocardiogram done on 06/10/2017 at 6:19 p.m. Normal sinus rhythm were noted with heart rate of 94 beats per minute. EKG was noted wandering from the baseline for the patient, not good quality electrocardiogram. PATRICA ALLISON MD CM:EKGRPT:ELECTROCARDIOGRAM REPORT [id number] PATRICA MIKE MD
--- NOTE | ~2017-06-10 | PR ---
[place], [place] PROGRESS NOTE NAME: TONI TOSCANO UNIT #: [id number] ROOM: 415 DOCTOR: GUY PADILLA MD BIRTHDATE: [birth year] DOS: 06/13/2017 SUBJECTIVE: The patient continues to be short of breath, hypoxemic and requiring high flow of oxygen 6-10 liters per minute. OBJECTIVE: VITAL SIGNS: Blood pressure 160/77, heart rate 76 beats per minute, breathing 21 times per minute, temperature 98 degrees Fahrenheit. GENERAL APPEARANCE: The patient is alert and oriented x 3, in no visible distress. HEENT AND NECK: Exam within normal limits. CARDIOVASCULAR SYSTEM: Heart rate is regular in rate and rhythm. S1 and S2 normally audible. LUNGS: Decreased breath sounds and expiratory wheezing. ABDOMEN: Soft, nontender. No obvious organomegaly. Bowel sounds are present. EXTREMITIES: Without significant cyanosis or edema. IMPRESSION: 1. The patient with acute over chronic respiratory failure with pneumonia, being treated with oxygen, bronchodilators, antibiotics. 2. Acute exacerbation of severe underlying chronic obstructive pulmonary disease with continued nicotine smoke dependence. The patient is still quite hypoxemic and critical. 3. Bilateral lower lung pneumonia, treated with Zosyn and azithromycin. 4. Chronic constipation, being treated and followed. 5. Coronary artery disease of the [place] vessels, without chest pains. The patient is on Imdur and aspirin. 6. Late onset Alzheimer's type dementia. The patient treated with rivastigmine. 7. Compression fracture at T8, which is old and with chronic back pains, controlled with hydrocodone. 8. Moderate protein-calorie malnutrition. The patient is working with Dietary. 9. Adult failure to thrive with recurrent falls. The patient is working with Physical Therapy. 10. Benign essential hypertension, being treated and controlled. 11. The patient's overall prognosis remains poor. The patient has no snf facility available that will accept her and her insurance does not let her go to LTAC facility and the patient wants to go home. The only option that remains to send her home with hospice. This was discussed with her today. [place], [place] PROGRESS NOTE NAME: TONI TOSCANO UNIT #: [id number] ROOM: 415 DOCTOR: GUY PADILLA MD BIRTHDATE: [birth year] GUY PADILLA MD CM:PNTRANS [phone] GUY PADILLA MD 06/13/17 1929 interface
--- NOTE | ~2017-06-10 | PR ---
[place], [place] PROGRESS NOTE NAME: [id number] UNIT #: [id number] ROOM: 415 DOCTOR: RAÚL MCCABE MD BIRTHDATE: [birth year] DOS: 06/15/2017 SUBJECTIVE: The patient states that her back pain is finally better. She does not have any new complaints. She is awaiting placement to snf facility. OBJECTIVE: VITAL SIGNS: Blood pressure is 138/78, pulse of 80, respirations 18, temperature 97.8. LUNGS: Diminished breath sounds. No wheezes, rales, rhonchi heard this morning. HEART: Regular. ABDOMEN: Obese. EXTREMITIES: Without any edema. ASSESSMENT AND PLAN: 1. MRSA of the sputum along with Klebsiella pneumoniae of the sputum on multiple IV antibiotics. A PICC line will be placed for IV access and the patient should be able to go to a senior living on Saturday. 2. Adult failure to thrive with chronic back pain, controlled with fentanyl. 3. Hypoglycemia from poor p.o. intake, encouraged to eat better. RAÚL MCCABE MD CM:OFELIA [phone] RAÚL MCCABE MD 06/15/172036 interface
[2017-06-10 08:00] VITALS: BP 144/74
[~2017-06-10 18:06] MED LIST changes: +DULER200 INH; +MIRALAX POWDER255 G1 PO; +MORPHINE S100 MG/5 M PO; +RIVASTIGMINE TAR3 M1 PO; +SPIRIVA -- 3018 MCG INH
[2017-06-10 18:08] VITALS: BP 163/77
[2017-06-10 18:34] LABS: HEMATOCRIT 37.8 % (37.0-47.0); HEMOGLOBIN 11.3 g/dl (12.0-16.0); MEAN CELL VOLUME 92.4 fl (81.0-99.0); MEAN CORPUSCULAR HGB 27.6 pg (27.0-31.0); MEAN CORPUSCULAR HGB CONC 29.9 g/dl (33.0-37.0); MEAN PLATELET VOLUME 11.7 fl (9.6-12.3); PLATELET COUNT AUTOMATED 136 10*3/uL (130-400); RED BLOOD COUNT 4.09 10*6/uL (4.10-5.10); RED CELL DISTRI WIDTH 15.6 % (0-14.5); WHITE BLOOD COUNT 15.1 10*3/uL (4.8-10.8)
[2017-06-10 18:43] LABS: ABG BASE EXCESS 6.2 mmol/L (-2.0-2.0); ABG HCO3 31.7 mmol/l (22-26); ABG O2 SATURATION 83.3 % (95-97); ARTERIAL BLOOD GAS PCO2 50.6 mmHg (35-45); ARTERIAL BLOOD GAS PH 7.41 (7.35-7.45); ARTERIAL BLOOD GAS PO2 46.5 mmHg (80-90)
[2017-06-10 18:50] LABS: ALBUMIN 2.6 gm/dl (3.1-4.5); ALKALINE PHOSPHATASE 66 U/L (45-117); BUN 27 mg/dl (7-24); CHLORIDE 91 mmol/L (98-107); CREATININE 0.87 mg/dL (0.55-1.02); POTASSIUM 4.4 mmol/L (3.5-5.1); SGOT/AST 220 IU/L (3-35); SGPT/ALT 217 U/L (12-78); SODIUM 135 mmol/L (136-145); TOTAL PROTEIN 6.6 gm/dL (6.4-8.2)
[2017-06-10 18:55] LABS: ATYPICAL LYMPHS 1 % (0-0); PLATELET SUFFICIENCY LOW (NORMAL); TOTAL CELLS COUNTED 100 #CELLS
[2017-06-10 18:56] LABS: MICROCYTOSIS SLIGHT; POLYCHROMASIA SLIGHT
[2017-06-10 18:58] LABS: TROPONIN I 0.088 ng/ml (<0.045)
[2017-06-10 19:34] VITALS: BP 148/66
[2017-06-10 20:00] VITALS: BP 144/74
[2017-06-10] MEDS ORDERED: DELTASONE20 M1 PO (20:58)
[2017-06-11] VITALS: BP 158/88
[2017-06-11 08:00] VITALS: BP 142/72
[2017-06-11 08:25] LABS: BUN 23 mg/dl (7-24); CHLORIDE 95 mmol/L (98-107); CREATININE 0.71 mg/dL (0.55-1.02); SODIUM 135 mmol/L (136-145)
[2017-06-11 09:19] LABS: HEMATOCRIT 32.1 % (37.0-47.0); HEMOGLOBIN 9.6 g/dl (12.0-16.0); MEAN CELL VOLUME 93.6 fl (81.0-99.0); MEAN CORPUSCULAR HGB CONC 29.9 g/dl (33.0-37.0); PLATELET COUNT AUTOMATED 104 10*3/uL (130-400); RED BLOOD COUNT 3.43 10*6/uL (4.10-5.10); RED CELL DISTRI WIDTH 15.5 % (0-14.5); WHITE BLOOD COUNT 9.1 10*3/uL (4.8-10.8)
[2017-06-11 10:55] LABS: TOTAL CELLS COUNTED 100 #CELLS
[2017-06-11 10:56] LABS: PLATELET SUFFICIENCY LOW (NORMAL); POLYCHROMASIA SLIGHT
[2017-06-11 12:00] VITALS: BP 168/75
[2017-06-11 16:00] VITALS: BP 122/65
[2017-06-11 20:00] VITALS: BP 166/67
[2017-06-12] VITALS: BP 120/79; BP 170/60
[2017-06-12 06:17] LABS: HEMATOCRIT 30.5 % (37.0-47.0); MEAN CELL VOLUME 91.9 fl (81.0-99.0); MEAN CORPUSCULAR HGB 27.1 pg (27.0-31.0); MEAN CORPUSCULAR HGB CONC 29.5 g/dl (33.0-37.0); MEAN PLATELET VOLUME 11.5 fl (9.6-12.3); PLATELET COUNT AUTOMATED 109 10*3/uL (130-400); RED BLOOD COUNT 3.32 10*6/uL (4.10-5.10); RED CELL DISTRI WIDTH 15.2 % (0-14.5); WHITE BLOOD COUNT 6.8 10*3/uL (4.8-10.8)
[2017-06-12 06:35] LABS: CHLORIDE 100 mmol/L (98-107); POTASSIUM 3.5 mmol/L (3.5-5.1); SODIUM 140 mmol/L (136-145)
[2017-06-12 06:38] LABS: BUN 17 mg/dl (7-24); CREATININE 0.71 mg/dL (0.55-1.02)
[2017-06-12 06:58] LABS: TOTAL CELLS COUNTED 100 #CELLS
[2017-06-12 06:59] LABS: PLATELET SUFFICIENCY LOW (NORMAL); SCHISTOCYTES FEW; SPHEROCYTES FEW
[2017-06-12 08:00] VITALS: BP 172/83
[2017-06-12 12:00] VITALS: BP 153/65
[2017-06-12 16:00] VITALS: BP 152/74
[2017-06-12 20:14] VITALS: BP 134/74
[2017-06-13] VITALS: BP 150/88
[2017-06-13 06:39] LABS: BASO % 0.2 % (0.0-1.0); HEMATOCRIT 31.8 % (37.0-47.0); HEMOGLOBIN 9.4 g/dl (12.0-16.0); LYMPH # 0.5 10*3/uL (1.3-4.4); LYMPH % 7.9 % (27.0-41.0); MEAN CELL VOLUME 94.6 fl (81.0-99.0); MEAN CORPUSCULAR HGB CONC 29.6 g/dl (33.0-37.0); MEAN PLATELET VOLUME 11.2 fl (9.6-12.3); MONO # 0.2 10*3/uL (0.1-1.0); MONO % 2.5 % (3.0-9.0); NEUT # 5.3 10*3/uL (2.3-7.9); NEUT % 88.4 % (47.0-73.0); PLATELET COUNT AUTOMATED 114 10*3/uL (130-400); RED BLOOD COUNT 3.36 10*6/uL (4.10-5.10); RED CELL DISTRI WIDTH 15.5 % (0-14.5)
[2017-06-13 07:03] LABS: CHLORIDE 105 mmol/L (98-107); POTASSIUM 3.6 mmol/L (3.5-5.1); SODIUM 145 mmol/L (136-145)
[2017-06-13 07:14] LABS: BUN 18 mg/dl (7-24); CREATININE 0.78 mg/dL (0.55-1.02)
[2017-06-13 08:00] VITALS: BP 138/72
[2017-06-13 12:00] VITALS: BP 132/68
[2017-06-13 16:00] VITALS: BP 162/77
[2017-06-13 20:00] VITALS: BP 190/83
[2017-06-14] VITALS: BP 170/80
[2017-06-14 08:00] VITALS: BP 186/81
[2017-06-14 12:00] VITALS: BP 156/83
[2017-06-14 16:00] VITALS: BP 169/75
[2017-06-14 18:25] VITALS: BP 182/84
[2017-06-14 20:00] VITALS: BP 151/76
[2017-06-15] VITALS: BP 160/73
[2017-06-15 06:21] LABS: EOS % 0.2 % (1.0-4.0); HEMATOCRIT 31.6 % (37.0-47.0); HEMOGLOBIN 9.3 g/dl (12.0-16.0); LYMPH # 0.4 10*3/uL (1.3-4.4); LYMPH % 9.2 % (27.0-41.0); MEAN CELL VOLUME 92.1 fl (81.0-99.0); MEAN CORPUSCULAR HGB 27.1 pg (27.0-31.0); MEAN CORPUSCULAR HGB CONC 29.4 g/dl (33.0-37.0); MEAN PLATELET VOLUME 11.3 fl (9.6-12.3); MONO # 0.2 10*3/uL (0.1-1.0); MONO % 3.7 % (3.0-9.0); NEUT % 86.5 % (47.0-73.0); PLATELET COUNT AUTOMATED 124 10*3/uL (130-400); RED BLOOD COUNT 3.43 10*6/uL (4.10-5.10); RED CELL DISTRI WIDTH 15.4 % (0-14.5); WHITE BLOOD COUNT 4.6 10*3/uL (4.8-10.8)
[2017-06-15 06:50] LABS: ALBUMIN 2.1 gm/dl (3.1-4.5); BUN 9 mg/dl (7-24); CHLORIDE 98 mmol/L (98-107); SODIUM 140 mmol/L (136-145)
[2017-06-15 06:54] LABS: ALKALINE PHOSPHATASE 61 U/L (45-117); CREATININE 0.65 mg/dL (0.55-1.02); SGOT/AST 48 IU/L (3-35); SGPT/ALT 81 U/L (12-78); TOTAL PROTEIN 5.3 gm/dL (6.4-8.2)
[2017-06-15 08:00] VITALS: BP 149/69
[2017-06-15 12:00] VITALS: BP 138/78
[2017-06-15 16:00] VITALS: BP 156/86
[2017-06-15 20:00] VITALS: BP 167/71
[2017-06-16] VITALS: BP 148/75
[2017-06-16 06:20] LABS: EOS % 0.9 % (1.0-4.0); HEMOGLOBIN 9.9 g/dl (12.0-16.0); LYMPH # 0.6 10*3/uL (1.3-4.4); LYMPH % 11.8 % (27.0-41.0); MEAN CELL VOLUME 90.9 fl (81.0-99.0); MEAN CORPUSCULAR HGB 27.3 pg (27.0-31.0); MEAN PLATELET VOLUME 10.8 fl (9.6-12.3); MONO # 0.3 10*3/uL (0.1-1.0); MONO % 5.6 % (3.0-9.0); NEUT # 3.8 10*3/uL (2.3-7.9); NEUT % 80.8 % (47.0-73.0); PLATELET COUNT AUTOMATED 143 10*3/uL (130-400); RED BLOOD COUNT 3.63 10*6/uL (4.10-5.10); WHITE BLOOD COUNT 4.7 10*3/uL (4.8-10.8)
[2017-06-16 06:53] LABS: ALBUMIN 2.3 gm/dl (3.1-4.5); ALKALINE PHOSPHATASE 74 U/L (45-117); BUN 8 mg/dl (7-24); CHLORIDE 98 mmol/L (98-107); CREATININE 0.63 mg/dL (0.55-1.02); POTASSIUM 3.1 mmol/L (3.5-5.1); SGOT/AST 69 IU/L (3-35); SGPT/ALT 86 U/L (12-78); SODIUM 140 mmol/L (136-145); TOTAL PROTEIN 5.7 gm/dL (6.4-8.2)
[2017-06-16 08:00] VITALS: BP 160/70
[2017-06-16 12:00] VITALS: BP 161/70
[2017-06-16 16:00] VITALS: BP 175/80
[2017-06-16 20:00] VITALS: BP 144/75
[2017-06-17] VITALS: BP 125/57
[2017-06-17 05:57] LABS: ALBUMIN 2.5 gm/dl (3.1-4.5); ALKALINE PHOSPHATASE 76 U/L (45-117); BUN 9 mg/dl (7-24); CHLORIDE 102 mmol/L (98-107); CREATININE 0.63 mg/dL (0.55-1.02); POTASSIUM 3.7 mmol/L (3.5-5.1); SGOT/AST 62 IU/L (3-35); SGPT/ALT 87 U/L (12-78); SODIUM 142 mmol/L (136-145); TOTAL PROTEIN 6.1 gm/dL (6.4-8.2)
[2017-06-17 06:06] LABS: EOS % 0.5 % (1.0-4.0); HEMATOCRIT 35.6 % (37.0-47.0); HEMOGLOBIN 10.4 g/dl (12.0-16.0); LYMPH # 0.7 10*3/uL (1.3-4.4); LYMPH % 16.8 % (27.0-41.0); MEAN CELL VOLUME 92.5 fl (81.0-99.0); MEAN CORPUSCULAR HGB CONC 29.2 g/dl (33.0-37.0); MEAN PLATELET VOLUME 10.3 fl (9.6-12.3); MONO # 0.3 10*3/uL (0.1-1.0); MONO % 7.8 % (3.0-9.0); NEUT # 3.2 10*3/uL (2.3-7.9); PLATELET COUNT AUTOMATED 142 10*3/uL (130-400); RED BLOOD COUNT 3.85 10*6/uL (4.10-5.10); RED CELL DISTRI WIDTH 15.2 % (0-14.5); WHITE BLOOD COUNT 4.3 10*3/uL (4.8-10.8)
[2017-06-17 08:00] VITALS: BP 179/83
[2017-06-17 12:00] VITALS: BP 148/70
[2017-06-17 16:00] VITALS: BP 159/77
[2017-06-17 20:00] VITALS: BP 151/68
[2017-06-18] VITALS: BP 137/69
[2017-06-18 08:00] VITALS: BP 152/77
[2017-06-18 12:00] VITALS: BP 148/86
[2017-06-18 16:00] VITALS: BP 136/76
[2017-06-18 20:00] VITALS: BP 119/59
[2017-06-19] VITALS: BP 152/64
[2017-06-19 08:00] VITALS: BP 159/57
[2017-06-19] MEDS ORDERED: Duragesic 50 M50 MCG T (10:38)
[2017-06-19] MEDS ORDERED: AMLODIPINE BESYL5 MG PO (10:38)
[2017-06-19] MEDS ORDERED: DOXYCYCLINE MO100 M1 PO (10:38)
[2017-06-19 16:00] VITALS: BP 130/60
[2017-06-19 20:00] VITALS: BP 121/61
[2017-06-20] VITALS: BP 149/71
[2017-06-20 07:32] LABS: BUN 14 mg/dl (7-24); CREATININE 0.87 mg/dL (0.55-1.02)
[2017-06-20 08:00] VITALS: BP 131/72
[2017-06-20 16:00] VITALS: BP 151/65
[2017-06-20 20:00] VITALS: BP 126/64
[2017-06-21] VITALS: BP 138/60
[2017-06-21 08:00] VITALS: BP 142/61
[2017-06-21 12:00] VITALS: BP 99/48
[2017-06-21 16:00] VITALS: BP 139/61
[2017-06-21 20:00] VITALS: BP 130/55
[2017-06-22] VITALS: BP 126/52
[2017-06-22 08:00] VITALS: BP 156/60
[2017-06-22 12:00] VITALS: BP 124/55
[2017-06-22 16:00] VITALS: BP 115/50
[2017-06-22 20:00] VITALS: BP 134/55
[2017-06-23] VITALS: BP 157/63
[2017-06-23 08:00] VITALS: BP 148/67
[2017-06-23 12:00] VITALS: BP 124/60
[2017-06-23 16:00] VITALS: BP 119/53
[2017-06-23 21:00] VITALS: BP 119/53
[2017-06-24 01:02] VITALS: BP 131/54
[2017-06-24 06:01] LABS: BUN 9 mg/dl (7-24); CREATININE 0.78 mg/dL (0.55-1.02)
[2017-06-24 08:00] VITALS: BP 141/79
[2017-06-24 12:00] VITALS: BP 125/55
[2017-06-24] MEDS ORDERED: SEPTDS PO (12:52)
[2017-06-24] MEDS ORDERED: Duragesic 50 M50 MCG T (12:55)
[2017-06-24] MEDS ORDERED: LYRICA25 M1 PO (12:55)
== END 2017-06-24 16:31 | disposition hospice, home (50) | DRG 871 ==
LOC: ED 18:06 → 4E 19:04 → EDHOLD 19:04 → 4E 19:44
PROVIDERS: Internal Medicine; Internal Medicine Critical Care Medicine; Nurse Practitioner Family
PROC: 5A09357 Assistance with Respiratory Ventilation, Less than 24 Consecutive Hours, Continuous Positive Airway Pressure (ICD-10-PCS; principal; 2017-06-11)
PROC: 02HV33Z Insertion of Infusion Device into Superior Vena Cava, Percutaneous Approach (ICD-10-PCS; 2017-06-17)
DX: A41.9 Sepsis, unspecified organism (principal); J96.21 Acute and chronic respiratory failure with hypoxia; J69.0 Pneumonitis due to inhalation of food and vomit; J15.0 Pneumonia due to Klebsiella pneumoniae; J15.212 Pneumonia due to Methicillin resistant Staphylococcus aureus; D61.818 Other pancytopenia; J96.22 Acute and chronic respiratory failure with hypercapnia; E44.0 Moderate protein-calorie malnutrition; J44.0 Chronic obstructive pulmonary disease with (acute) lower respiratory infection; J44.1 Chronic obstructive pulmonary disease with (acute) exacerbation; M48.54XA Collapsed vertebra, not elsewhere classified, thoracic region, initial encounter for fracture; E87.3 Alkalosis; I24.8 Other forms of acute ischemic heart disease; Z66 Do not resuscitate; Z51.5 Encounter for palliative care; K59.09 Other constipation; E87.6 Hypokalemia; I25.10 Atherosclerotic heart disease of native coronary artery without angina pectoris; F32.9 Major depressive disorder, single episode, unspecified; G30.1 Alzheimer's disease with late onset; F02.80 Dementia in other diseases classified elsewhere, unspecified severity, without behavioral disturbance, psychotic disturbance, mood disturbance, and anxiety; F17.210 Nicotine dependence, cigarettes, uncomplicated; R62.7 Adult failure to thrive; R29.6 Repeated falls; F41.1 Generalized anxiety disorder; E03.9 Hypothyroidism, unspecified; G89.29 Other chronic pain; N18.9 Chronic kidney disease, unspecified; E16.2 Hypoglycemia, unspecified; E78.00 Pure hypercholesterolemia, unspecified; M19.90 Unspecified osteoarthritis, unspecified site; G25.81 Restless legs syndrome; Z96.612 Presence of left artificial shoulder joint; G47.11 Idiopathic hypersomnia with long sleep time; I12.9 Hypertensive chronic kidney disease with stage 1 through stage 4 chronic kidney disease, or unspecified chronic kidney disease; Z95.1 Presence of aortocoronary bypass graft; Z68.21 Body mass index [BMI] 21.0-21.9, adult; Z99.81 Dependence on supplemental oxygen; Z79.82 Long term (current) use of aspirin; Z79.899 Other long term (current) drug therapy; Z90.710 Acquired absence of both cervix and uterus; Z88.1 Allergy status to other antibiotic agents; Z88.8 Allergy status to other drugs, medicaments and biological substances; Z91.018 Allergy to other foods; Z82.49 Family history of ischemic heart disease and other diseases of the circulatory system; Z80.8 Family history of malignant neoplasm of other organs or systems

== ENCOUNTER → 2017-08-20 | Outpatient (CLI) | payer OTHER ==
[~2017-08-20] MED LIST changes: +AMLODIPINE BESYL5 MG PO; +DOXYCYCLINE MO100 M1 PO; +Duragesic 50 M50 MCG T; +SEPTDS PO
== END | disposition home or self-care (01) ==
LOC: US 14:30
DX: M79.89 Other specified soft tissue disorders (principal)